=== PATIENT | male | born 1985 | race African-American/Black ===

== ENCOUNTER 2017-04-10 00:25 | Inpatient (IN) | payer SELFPAY ==
[2017-04-10] VITALS (11 sets, daily range): BP systolic 119–158; BP diastolic 66–103
[~2017-04-10] VITALS: Ht 182.9 cm; Wt 86.2 kg
--- NOTE | 2017-04-10 00:41 | PHYS DOC ---
Adult General Chief Complaint Chief Complaint: ABSCESS HPI HPI Patient is a 31 year old male who presents with perirectal abscess that he noted yesterday. Patient denies any significant medical history. Denies any fever. Review of Systems Review of Systems Constitutional: Denies fever or chills [] Eyes: Denies change in visual acuity, redness, or eye pain [] HENT: Denies nasal congestion or sore throat [] Respiratory: Denies cough or shortness of breath [] Cardiovascular: No additional information not addressed in HPI [] GI: Denies abdominal pain, nausea, vomiting, bloody stools or diarrhea [] : Denies dysuria or hematuria [] Musculoskeletal: Denies back pain or joint pain [] Integument: Perirectal abscess Neurologic: Denies headache, focal weakness or sensory changes [] Endocrine: Denies polyuria or polydipsia [] Allergies Allergies Allergies Coded Allergies Type Severity Reaction Last Updated Verified No Known Drug Allergies 04/10/17 No Physical Exam Physical Exam Constitutional: Well developed, well nourished, no acute distress, non-toxic appearance. [] HENT: Normocephalic, atraumatic, bilateral external ears normal, oropharynx moist, no oral exudates, nose normal. [] Eyes: PERRLA, EOMI, conjunctiva normal, no discharge. [] Neck: Normal range of motion, no tenderness, supple, no stridor. [] Cardiovascular:Heart rate regular rhythm, no murmur [] Lungs & Thorax: Bilateral breath sounds clear to auscultation [] Abdomen: Bowel sounds normal, soft, no tenderness, no masses, no pulsatile masses. [] Skin: Perirectal area with 2 connecting abscesses each approximately 5 x 3 cm. The abscesses are warm erythematous and appear fluctuant. Back: No tenderness, no CVA tenderness. [] Extremities: No tenderness, no cyanosis, no clubbing, ROM intact, no edema. [] Neurologic: Alert and oriented X 3, normal motor function, normal sensory function, no focal deficits noted. [] Psychologic: Affect normal, judgement normal, mood normal. [] Current Patient Data Vital Signs Vital Signs Date Time Temp Pulse Resp B/P (MAP) Pulse Ox O2 Delivery O2 Flow Rate FiO2 04/10/17 00:30 98.3 99 18 170/112 (131) 97 Room Air 98.3 EKG EKG [] Radiology/Procedures Radiology/Procedures [] Course & Med Decision Making Course & Med Decision Making Pertinent Labs and Imaging studies reviewed. (See chart for details) This is a 31-year-old male patient presenting to the ED with perirectal abscess that he noted yesterday. Patient state masses are up-to-date. This abscesses need to be drained surgically. Patient was admitted, Dr. Tolentino will be consulted by Dr. Waterman in AM for admission. Spoke with Dr. Mcallister who will f/u with patient labs were ordered including blood culture and wound culture (if available). CT of the abdomen and pelvic was ordered for rectal abscess. Patient was started on IV fluids, Zosyn and vancomycin were ordered. Vitals on arrival to the ED temperature was 98.3, heart rate 99, blood pressure 170/112 with no history of hypertension, O2 sats 97% on room air, respiration 18. Patient was admitted in stable condition. Dragon Disclaimer Dragon Disclaimer This electronic medical record was generated, in whole or in part, using a voice recognition dictation system. Departure Departure Impression: Primary Impression: Perirectal abscess Disposition: ADMITTED INPATIENT Condition: STABLE Referrals: NON,STAFF (PCP) LILY OBRIEN APRN Apr 10, 2017 00:41
[2017-04-10] MEDS ORDERED: IV NORMAL SALINE 1000ML BAG 1,000 ML IV ONE ×2 (00:45→01:00)
[2017-04-10] MEDS ORDERED: ONDANSETRON PF 4 MG/2 ML VIAL. IV PRN ×2 (01:00→10:30)
[2017-04-10] MEDS ORDERED: PIPERACILLIN/TAZOBACTAM 4.5 GM in IV NORMAL SALINE 100ML 100 ML IV ONE (01:00)
[2017-04-10] MEDS ORDERED: cloNIDine HCL 0.1 MG TABLET PO PRN (01:00)
[2017-04-10] MEDS ORDERED: ACETAMINOPHEN 325 MG TABLET. PO PRN (01:00)
[2017-04-10] MEDS ORDERED: CONTRAST GIVEN MC PRN (01:00)
[2017-04-10 01:02] LABS: BASO % 0 % (0-3); EOS % 3 % (0-3); HEMATOCRIT 43.3 % (39.0-53.0); HEMOGLOBIN 14.4 g/dL (13.0-17.5); LYMPH % 51 % (24-48); MEAN CORPUSCULAR HEMOGLOBIN 29 pg (25-35); MEAN CORPUSCULAR HGB CONC 33 g/dL (31-37); MEAN CORPUSCULAR VOLUME 87 fL (79-100); MONO % 7 % (0-9); NEUT % 39 % (31-73); PLATELET COUNT 212 x10^3/uL (140-400); RED CELL DISTRIBUTION WIDTH 15.1 % (11.5-14.5); WHITE BLOOD COUNT 7.8 x10^3/uL (4.0-11.0)
[2017-04-10 01:11] LABS: CALCIUM 8.9 mg/dL (8.5-10.1); GFR 106.2; POTASSIUM 4.2 mmol/L (3.5-5.1); PROTHROMBIN TIME PATIENT 12.3 SEC (11.7-14.0)
[2017-04-10] MEDS ORDERED: IOHEXOL 300 MG/ML 75 ML VIAL IV ONE (01:30)
[2017-04-10] MEDS ORDERED: VANCOMYCIN 2 GM in IV NORMAL SALINE 500ML BAG 500 ML IV ONE (01:30)
[2017-04-10] MEDS: MORPHINE SULFATE 4 MG/ML DISP.SYRIN. IV PRN ×3 (01:38→08:08)
--- NOTE | 2017-04-10 02:11 | RAD ---
Examination: CT of the abdomen pelvis with IV contrast HISTORY: History of perirectal abscess COMPARISON: None available TECHNIQUE: Axial CT images of the abdomen pelvis was performed with IV contrast. Coronal and sagittal reformats are performed Exposure: One or more of the following individualized dose reduction techniques were utilized for this examination: 1. Automated exposure control 2. Adjustment of the mA and/or kV according to patient size 3. Use of iterative reconstruction technique FINDINGS: The visualized bibasilar lungs grossly appears unremarkable. No evidence of free air identified in the abdomen. The visualized liver demonstrates a small hypodensity in the left lobe of the liver measuring 1.4 cm. The visualized spleen, adrenals grossly appears unremarkable. The gallbladder is mildly distended The stomach is mildly distended. The visualized pancreas grossly appears unremarkable The small bowel is nondilated. Feces and gas noted throughout the colon. The visualized appendix grossly appears unremarkable. Urinary bladder is mildly distended. The bilateral kidneys enhance symmetrically. There is a cystic structure identified in the right kidney measuring 1.4 cm probably a cyst. The caliber of the aorta grossly appears unremarkable. No evidence of lytic bony destructive lesion. There is questionable bilobed small soft tissue in the anal region which may be hemorrhoids or prolapse or mass however no focal fluid collection identified to suggest an abscess. IMPRESSION: 1.There is questionable bilobed small soft tissue in the anal region which may be hemorrhoids or prolapse or mass , however no focal fluid collection identified to suggest an abscess. 2. Liver demonstrates a small hypodensity in the left lobe of the liver measuring 1.4 cm, difficult but contrast could be a hemangioma. Follow-up nonemergent ultrasound can be considered. Electronically signed by: Justin Lyn MD (04/10/2017 2:07 AM) [id number]
[2017-04-10] MEDS: VANCOMYCIN PER PHARMACY MC PRN ×2 (03:30→15:40)
--- NOTE | 2017-04-10 04:23 | ACF ---
Admission Forms Criteria SKIN AND WOUND CARE ( Place 'X' for any and all applicable criteria): Ongoing inpatient care may be indicated for skin complications with 1 or more of the following [ ]I. Hemodynamic Instability((2)(8)(9)(28)(42)(43)(44) [ ]II. Dehydration that is severe or persistent [X ]III. Severe pain requiring acute inpatient management [ ]IV. Inpatient treatment needed as indicated by 1 or more of the following: Pressure ulcer closure procedures [ ] i. Skin grafting(45) [ ]ii. Opthalmic surgical procedure (eg amniotic membrane grafting) [ ]iii. Serial ocular examinations [ ]iv. Wound debridement [ ]v. Dressing change under general anesthesia [ ]vi. Diverting colostomy [ ]vii. Intravenous immunosuppressant therapy [ ]V. Significant burn as indicated by 1 or more of the following [ ]i. Full thickness burn greater than 10% of body surface area [ ]ii. Any burn greater than 15% of body surface area [ ]iii. Serious burn of hand, foot, genitals, face or joint [ ]iv. Burn accompanied by other significant medical problems or injuries (eg altered mental [ ]v. status, arrhythmia, inability to maintain oral hydration, significant wound) [ ]vi. Serious chemical burn [ ]vii. High voltage (e.g. 1000 volts or more) electrical burn [ ]viii. Circumferential burn [ ] . Skin infection requiring inpatient care as indicated by ALL of the following: [ ]a) Infection suspected as indicated by 1 or more of the following: [ ] i. Excessive drainage [ ]ii. Pus [ ]iii. Increased redness [ ]iv. Foul Odor [ ]v. Fever [ ]b) Clinically significant infection as indicated by 1 or more of the following: [ ]i. Vital signs abnormality [ ]ii. Persistantly high temperatures greater than 103.1 degrees F (39.5degrees C)(Oral) [ ]iii. Unexplained metabolic acidosis (eg lactic acidosis) [ ]iv. Evidence of end organ dysfunction (eg rising creatinine, myocardial ischemia, liver function tests) [ ]v. Hypoxemia [ ]vi. Tachypnea [ ]vii. Altered mental status [ ]viii. Dehydration that is severe or persistent Extended stay beyond goal length of stay for primary condition may be needed until ALL of the following are present(1)(2)(13)(21)(27): [ ]a) Hemodynamic instability [ ]b) Volume status acceptable [ ]c) Mental status at baseline [ ]d) Tissue necrosis absent or treatment plan manageable at lower level of care [ ]e) Fever absent or temperature as expected for disease process and acceptable for next level of care [ ]f) Hypoxemia present [ ]g) Tachypnea present [ ]h) Fistulas, tunneling, or underlying deep tissue infection absent or treated [ ]i) Purulence and tissue breakdown absent or improved [ ]j) Ulcer surgical repair absent or healing without complications [ ]k) Wound infection absent or manageable at lower level of care [ ]l) Comorbidities absent or manageable at lower level of care The original [facility] [employer] content created by [facility] [employer] has been revised. The portions of the content which have been revised are identified through the use of italic text, and [facility] has neither reviewed nor approved the modified material. All other unmodified content is copyright [facility] [employer]. Please see references footnoted in the original [facility] edition 2014 Admission Criteria Met?: Yes CORINNE VILLEGAS Apr 10, 2017 04:23 SUSANNA MUSA MD Apr 10, 2017 21:22
[2017-04-10] MEDS: VANCOMYCIN 1.25 GM in IV NORMAL SALINE 250ML 250 ML IV SCH ×2 (10:00→17:10)
[2017-04-10] MEDS ORDERED: MORPHINE SULFATE 2 MG/ML DISP.SYRIN. IV PRN (10:30)
[2017-04-10] MEDS ORDERED: fentaNYL PF VIAL 100 MCG/2 ML VIAL IV PRN (10:30)
[2017-04-10] MEDS ORDERED: PROCHLORPERAZINE 10 MG/2 ML VIAL. IV PRN (10:30)
[2017-04-10] MEDS ORDERED: LIDOCAINE 1% 1 ML SYRINGE. ID PRN (10:30)
[2017-04-10] MEDS ORDERED: HYDROmorphone 2 MG/ML VIAL IV PRN (10:30)
[2017-04-10] MEDS ORDERED: IV RINGERS,LACTATED 1000ML 1,000 ML IV SCH (10:30)
--- NOTE | 2017-04-10 11:06 | PDOC2 ---
CONSULT Date of Consult Date of Consult DATE: 04/10/17 TIME: 11:01 Reason for Consult Reason for Consult: perirectal pain and swelling Referring Physician Referring Physician: Randa Identification/Chief Complaint Chief Complaint Perirectal pain Problems: Source Source: Patient History of Present Illness Reason for Visit: 31 yo male with 2 day history for rectal pain and a swelling in the area. Denies fever or chills. Last BM 2 days ago. He has never had a problem like this before. Past Medical History Infectious disease: Other (hidradenitis) Past Surgical History Past Surgical History: No pertinent history Family History Family History: No Significant Social History 1 pack per day ALCOHOL: rare Lives: with Family Current Problem List Problem List Problems Medical Problems: (1) Perirectal abscess Status: Acute Current Medications Current Medications Current Medications Vancomycin HCl (Vanco Per Pharmacy) 1 each PRN DAILY PRN MC ABCESS Last administered on 04/10/17 03:30; Start 04/10/17 at 09:00 Piperacillin Sod/ Tazobactam Sod 4.5 gm/Sodium Chloride 100 ml @ 200 mls/hr 1X ONCE IV Last administered on 04/10/17 01:08; Start 04/10/17 at 01:00; Stop 04/10/17 at 01:29; Status DC Sodium Chloride 1,000 ml @ 1,000 mls/hr 1X ONCE IV Last administered on 01:07; Start 04/10/17 at 00:45; Stop 04/10/17 at 01:44; Status DC Vancomycin HCl 2 gm/Sodium Chloride 500 ml @ 250 mls/hr 1X ONCE IV Last administered on 04/10/17 01:51; Start 04/10/17 at 01:30; Stop 04/10/17 at 03:29 ; Status DC Iohexol (Omnipaque 300 Mg/ml) 75 ml 1X ONCE IV Last administered on 04/10/17 01:42; Start 04/10/17 at 01:30; Stop 04/10/17 at 01:31; Status DC Info (Do NOT chart on this entry -- for MONITORING) 1 each PRN DAILY PRN MC SEE COMMENTS; Start 04/10/17 at 01:00; Stop 04/12/17 at 00:59 Ondansetron HCl (Zofran) 4 mg PRN Q8HRS PRN IV NAUSEA/VOMITING; Start 04/10/17 at 01:00; Stop 04/11/17 at 00:59 Morphine Sulfate 4 mg PRN Q2HR PRN IV SEVERE PAIN Last administered on 08:08; Start 04/10/17 at 01:00; Stop 04/11/17 at 00:59 Acetaminophen (Tylenol) 650 mg PRN Q4HRS PRN PO FEVER; Start 04/10/17 at 01:00 ; Stop 04/11/17 at 00:59 Sodium Chloride 1,000 ml @ 125 mls/hr 1X ONCE IV Last administered on 01:00; Start 04/10/17 at 01:00; Stop 04/10/17 at 08:59; Status DC Clonidine HCl (Catapres) 0.1 mg PRN Q6HRS PRN PO ELEVATED BP, SEE COMMENTS Last administered on 04/10/17 01:40; Start 04/10/17 at 01:00 Vancomycin HCl 1.25 gm/Sodium Chloride 250 ml @ 167 mls/hr Q8H IV Last administered on 04/10/17 10:00; Start 04/10/17 at 10:00 Vancomycin HCl 1 each 1X ONCE MC ; Start 04/11/17 at 09:30; Stop 04/11/17 at 09 :31 Ondansetron HCl (Zofran) 4 mg PRN Q6HRS PRN IV NAUSEA/VOMITING; Start 04/10/17 at 10:30; Stop 04/10/17 at 19:00 Fentanyl Citrate (Fentanyl 2ml Vial) 25 mcg PRN Q5MIN PRN IV MILD PAIN; Start 04/10/17 at 10:30; Stop 04/10/17 at 19:00 Fentanyl Citrate (Fentanyl 2ml Vial) 50 mcg PRN Q5MIN PRN IV MODERATE PAIN; Start 04/10/17 at 10:30; Stop 04/10/17 at 19:00 Morphine Sulfate 1 mg PRN Q10MIN PRN IV SEVERE PAIN; Start 04/10/17 at 10:30; Stop 04/10/17 at 19:00 Ringer's Solution 1,000 ml @ 30 mls/hr Q24H IV ; Start 04/10/17 at 10:30; Stop 04/10/17 at 19:00 Lidocaine HCl 2 ml PRN 1X PRN ID PRIOR TO IV START; Start 04/10/17 at 10:30; Stop 04/10/17 at 19:00 Hydromorphone HCl (Dilaudid) 0.5 mg PRN Q10MIN PRN IV SEV PAIN, Second choice; Start 04/10/17 at 10:30; Stop 04/10/17 at 19:00 Prochlorperazine Edisylate (Compazine) 5 mg PACU PRN PRN IV NAUSEA, MRX1; Start 04/10/17 at 10:30; Stop 04/10/17 at 19:00 Allergies Allergies: Coded Allergies: No Known Drug Allergies (Unverified , 04/10/17) ROS Gastrointestinal: Yes Other (rectal pain) Physical Exam General: Alert, Oriented X3, Cooperative, moderate distress HEENT: Atraumatic, PERRLA, EOMI Lungs: Clear to auscultation, Normal air movement Heart: Regular rate, No murmurs Abdomen: Normal bowel sounds, Soft, No tenderness, Other (rectal exam show 2 large thrombosed hemmorrhoids very tender) Extremities: No edema Skin: No significant lesion Neuro: Normal speech Psych/Mental Status: Mental status NL Vitals VITALS Vital Signs Date Time Temp Pulse Resp B/P (MAP) Pulse Ox O2 Delivery O2 Flow Rate FiO2 04/10/17 08:38 98 04/10/17 08:00 Room Air 04/10/17 07:00 97.9 56 22 135/82 (99) 97.9 Labs Labs Laboratory Tests Test 04/10/17 00:51 04/10/17 09:15 White Blood Count 7.8 x10^3/uL (4.0-11.0) Red Blood Count 5.00 x10^6/uL (4.30-5.70) Hemoglobin 14.4 g/dL (13.0-17.5) Hematocrit 43.3 % (39.0-53.0) Mean Corpuscular Volume 87 fL (79-100) Mean Corpuscular Hemoglobin 29 pg (25-35) Mean Corpuscular Hemoglobin Concent 33 g/dL (31-37) Red Cell Distribution Width 15.1 % (11.5-14.5) Platelet Count 212 x10^3/uL (140-400) Neutrophils (%) (Auto) 39 % (31-73) Lymphocytes (%) (Auto) 51 % (24-48) Monocytes (%) (Auto) 7 % (0-9) Eosinophils (%) (Auto) 3 % (0-3) Basophils (%) (Auto) 0 % (0-3) Neutrophils # (Auto) 3.1 x10^3uL (1.8-7.7) Lymphocytes # (Auto) 4.0 x10^3/uL (1.0-4.8) Monocytes # (Auto) 0.5 x10^3/uL (0.0-1.1) Eosinophils # (Auto) 0.3 x10^3/uL (0.0-0.7) Basophils # (Auto) 0.0 x10^3/uL (0.0-0.2) Prothrombin Time 12.3 SEC (11.7-14.0) Prothromb Time International Ratio 1.0 (0.8-1.1) Activated Partial Thromboplast Time 32 SEC (24-38) Sodium Level 141 mmol/L (136-145) Potassium Level 4.2 mmol/L (3.5-5.1) Chloride Level 103 mmol/L (98-107) Carbon Dioxide Level 29 mmol/L (21-32) Anion Gap 9 (6-14) Blood Urea Nitrogen 12 mg/dL (8-26) Creatinine 1.0 mg/dL (0.7-1.3) Estimated GFR (Cockcroft-Gault) 106.2 Glucose Level 98 mg/dL (70-99) Calcium Level 8.9 mg/dL (8.5-10.1) Procalcitonin < 0.10 ng/mL (0.00-0.10) Ethyl Alcohol Level < 10 mg/dL (0-10) Lactic Acid Level 0.6 mmol/L (0.4-2.0) Laboratory Tests Test 04/10/17 00:51 04/10/17 09:15 White Blood Count 7.8 x10^3/uL (4.0-11.0) Red Blood Count 5.00 x10^6/uL (4.30-5.70) Hemoglobin 14.4 g/dL (13.0-17.5) Hematocrit 43.3 % (39.0-53.0) Mean Corpuscular Volume 87 fL (79-100) Mean Corpuscular Hemoglobin 29 pg (25-35) Mean Corpuscular Hemoglobin Concent 33 g/dL (31-37) Red Cell Distribution Width 15.1 % (11.5-14.5) Platelet Count 212 x10^3/uL (140-400) Neutrophils (%) (Auto) 39 % (31-73) Lymphocytes (%) (Auto) 51 % (24-48) Monocytes (%) (Auto) 7 % (0-9) Eosinophils (%) (Auto) 3 % (0-3) Basophils (%) (Auto) 0 % (0-3) Neutrophils # (Auto) 3.1 x10^3uL (1.8-7.7) Lymphocytes # (Auto) 4.0 x10^3/uL (1.0-4.8) Monocytes # (Auto) 0.5 x10^3/uL (0.0-1.1) Eosinophils # (Auto) 0.3 x10^3/uL (0.0-0.7) Basophils # (Auto) 0.0 x10^3/uL (0.0-0.2) Prothrombin Time 12.3 SEC (11.7-14.0) Prothromb Time International Ratio 1.0 (0.8-1.1) Activated Partial Thromboplast Time 32 SEC (24-38) Sodium Level 141 mmol/L (136-145) Potassium Level 4.2 mmol/L (3.5-5.1) Chloride Level 103 mmol/L (98-107) Carbon Dioxide Level 29 mmol/L (21-32) Anion Gap 9 (6-14) Blood Urea Nitrogen 12 mg/dL (8-26) Creatinine 1.0 mg/dL (0.7-1.3) Estimated GFR (Cockcroft-Gault) 106.2 Glucose Level 98 mg/dL (70-99) Calcium Level 8.9 mg/dL (8.5-10.1) Procalcitonin < 0.10 ng/mL (0.00-0.10) Ethyl Alcohol Level < 10 mg/dL (0-10) Lactic Acid Level 0.6 mmol/L (0.4-2.0) Images Images CT did not show any abscess Assessment/Plan Assessment/Plan Thrombosed hemorrhoids Plan exam under anesthesia with excision of hemorrhoids KEN FERNÁNDEZ MD Apr 10, 2017 11:06
[2017-04-10] MEDS ORDERED: PROPOFOL 20 ML IV ONE (13:54)
[2017-04-10] MEDS ORDERED: fentaNYL PF VIAL 100 MCG/2 ML VIAL ONE ×4 (13:54→15:10)
[2017-04-10] MEDS ORDERED: DEXAMETHASONE SOD PHOS 20 MG/5 ML VIAL. ONE (13:54)
[2017-04-10] MEDS ORDERED: MIDAZOLAM HCL/PF 2 MG/2 ML VIAL. ONE (13:54)
[2017-04-10] MEDS ORDERED: LIDOCAINE 2% PF Vial for OR 5 ML VIAL. ONE (13:54)
[2017-04-10] MEDS ORDERED: ONDANSETRON PF 4 MG/2 ML VIAL. ONE (13:54)
[2017-04-10] MEDS ORDERED: NEOMY/BACITR/POLYMYXIN OINT PACKET. TP ONE ×2 (13:57→14:28)
[2017-04-10] MEDS ORDERED: BUPIVAC MPF-EPI 0.5%-1:200000 30 ML VIAL. ONE (13:57)
[2017-04-10] MEDS ORDERED: FAMOTIDINE 20 MG/2 ML VIAL ONE (14:17)
--- NOTE | 2017-04-10 14:39 | PDOC4 ---
Operative Note Operative Note Date: 04/10/2017 Preoperative diagnosis: Thrombosed external hemorrhoids Postoperative diagnosis: Same Procedure: Excision of thrombosed external hemorrhoids 3 Surgeon: Esvin Specimen: External hemorrhoids Dictation: Patient is a 31-year-old male with complaints of an enlarging mass and perirectal pain. Procedure of excision of thrombosed external hemorrhoids was explained to the patient in detail risks benefits were also discussed including bleeding infection alternatives as this procedure were also discussed. The patient seemed understanding gave both verbal and written consent to have the procedure performed. Patient was taken to the operating room placed in the supine position general anesthesia was initiated once patient was asleep and intubated was placed in low lithotomy and his peritoneum was prepped and draped usual sterile fashion using Betadine scrub and solution. The external hemorrhoids were excised using the Harmonic scalpel. Once the external hemorrhoids were excised the area was then injected with half percent Marcaine with epinephrine. Area was then dressed with antibiotic ointment and AVD pad. Patient was awakened next but in the operating room taken to recovery in stable condition all sponge instrument and needle counts listed as correct estimate blood loss 10ml. KEN FERNÁNDEZ MD Apr 10, 2017 14:39
[2017-04-10] MEDS ORDERED: oxyCODONE/APAP 5/325 1 TAB TABLET PO PRN (14:45)
[2017-04-10] MEDS: fentaNYL PF VIAL 100 MCG/2 ML VIAL IV PRN ×2 (15:16→15:23)
[2017-04-10] MEDS: BISACODYL 5 MG TABLET.DR. PO SCH (17:09)
[2017-04-10] MEDS: KETOROLAC 15 MG/ML VIAL. IV SCH (17:11)
[2017-04-10] MEDS: NICOTINE 14MG PATCH. TD SCH (17:29)
[2017-04-10 17:40] LABS: BILIRUBIN,URINE NEGATIVE (NEG); GLUCOSE,URINE NEGATIVE (NEG); NITRITE,URINE NEGATIVE (NEG); PH,URINE 5.5; PROTEIN,URINE NEGATIVE (NEG-TRACE); UROBILINOGEN,URINE 0.2 mg/dL (0.2 mg/dL)
[2017-04-10 17:45] LABS: BARBITURATES NEG (NEG); BENZODIAZEPINES POS (NEG); CANNABINOIDS POS (NEG); COCAINE NEG (NEG); METHADONE NEG (NEG); OPIATES POS (NEG); PHENCYCLIDINE POS (NEG)
[2017-04-10 17:51] LABS: BACTERIA,URINE 0 /HPF (0-FEW); RBC,URINE 0 /HPF (0-2)
--- NOTE | 2017-04-10 18:04 | HP ---
ADMIT DATE: 04/10/2017 CHIEF COMPLAINT: Rectal pain. HISTORY OF PRESENT ILLNESS: The patient is a 31-year-old -[place] gentleman who presented to the hospital with severe pain in his rectal area. He reports that this started about 2 days prior, simply got worse, has difficulty sitting. Denies any fevers or chills. He does have a history of hidradenitis suppurativa and has an abscess under his chin as well as in his left groin. PAST MEDICAL HISTORY: None. FAMILY HISTORY: Hypertension. SOCIAL HISTORY: Just moved here from [place], smokes about a pack a day and denies any alcohol or drug use. ALLERGIES: No known drug allergies. HOME MEDICATIONS: None. REVIEW OF SYSTEMS: Positive as per HPI. Rest of organ system review is negative. PHYSICAL EXAMINATION: VITAL SIGNS: From today show a blood pressure of 148/89, heart rate of 66, respiratory rate at 18. He is afebrile. GENERAL: This is a 31-year-old -[place] gentleman, alert and oriented, in no acute distress. LUNGS: Clear. HEART: Has regular rate and rhythm. ABDOMEN: Has positive bowel sounds, soft, nontender. EXTREMITIES: Left groin shows about a 3 cm diameter raised, tender abscess without any surrounding erythema. SKIN: Warm, soft and dry without any rash. LABORATORY DATA: CBC with a WBC of 7.8, hemoglobin 14.4, platelets of 212. Chemistries with a BUN and creatinine of 12 and 1, normal electrolytes. Tox screen negative for alcohol. ASSESSMENT AND PLAN: The patient is a 31-year-old -[place] gentleman who presented with a thrombosed hemorrhoid. Dr. Mcallister took him to hemorrhoidectomy surgically earlier today. The patient tolerated the procedure well. Pain control as needed. I discussed with the patient that narcotics will make him more constipated and we will try and avoid that given his current situation. We will start him on Dulcolax daily. The groin abscess was discussed with Dr. Mcallister. The 2 procedures cannot be done at the same time. He will evaluate in the morning and I and D is indicated. SUSANNA MUSA MD DR: AC/nts JOB#: [id number] / [id number] MTDD
[2017-04-11] VITALS (7 sets, daily range): BP systolic 112–148; BP diastolic 60–97
[2017-04-11] MEDS: KETOROLAC 15 MG/ML VIAL. IV SCH ×4 (00:58→18:17)
[2017-04-11] MEDS: VANCOMYCIN 1.25 GM in IV NORMAL SALINE 250ML 250 ML IV SCH ×3 (01:02→18:16)
[2017-04-11] MEDS ORDERED: IV RINGERS,LACTATED 1000ML 1,000 ML IV SCH (07:19)
[2017-04-11] MEDS ORDERED: LIDOCAINE 1% 1 ML SYRINGE. ID PRN (07:30)
[2017-04-11] MEDS ORDERED: fentaNYL PF VIAL 100 MCG/2 ML VIAL IV PRN (07:30)
[2017-04-11] MEDS ORDERED: PROCHLORPERAZINE 10 MG/2 ML VIAL. IV PRN (07:30)
[2017-04-11] MEDS ORDERED: HYDROmorphone 2 MG/ML VIAL IV PRN (07:30)
[2017-04-11] MEDS ORDERED: MORPHINE SULFATE 2 MG/ML DISP.SYRIN. IV PRN (07:30)
[2017-04-11] MEDS ORDERED: ONDANSETRON PF 4 MG/2 ML VIAL. IV PRN (07:30)
[2017-04-11] MEDS ORDERED: PROPOFOL 20 ML IV ONE (07:44)
[2017-04-11] MEDS ORDERED: LIDOCAINE 2% PF Vial for OR 5 ML VIAL. ONE (07:44)
[2017-04-11] MEDS ORDERED: DEXAMETHASONE SOD PHOS 20 MG/5 ML VIAL. ONE (07:44)
[2017-04-11] MEDS ORDERED: ONDANSETRON PF 4 MG/2 ML VIAL. ONE (07:44)
[2017-04-11] MEDS ORDERED: fentaNYL PF VIAL 100 MCG/2 ML VIAL ONE ×2 (07:46→08:34)
[2017-04-11] MEDS ORDERED: MIDAZOLAM HCL/PF 2 MG/2 ML VIAL. ONE (07:53)
--- NOTE | 2017-04-11 08:20 | PDOC4 ---
Operative Note Operative Note Date: 04/11/2017 Preoperative diagnosis: Left groin abscess Postoperative diagnosis: Same Procedure: Incision and drainage of left groin abscess Surgeon: Esvin Specimen: Cultures Dictation: Patient is a 31-year-old male with a history of hidradenitis has developed a left groin abscess superficial. Procedure of incision and drainage of abscess was explained to the patient in detail was benefits were also discussed including bleeding infection alternatives to this procedure also discussed. The patient seemed understanding gave both verbal and written consent to have the procedure performed. Patient was taken to the operating room placed in the supine position general anesthesia was initiated once patient was asleep and intubated his groin was prepped and draped usual sterile fashion using ChloraPrep. An 11 blade scalpel was used to incise the skin which allowed copious amounts of purulent material to be expressed this was suctioned wound was then irrigated with saline. Cultures of the purulent material are taken and the wound was then packed with quarter inch iodoform Nu Gauze. Wound was then dressed with 4 x 4's Medipore tape. He was awakened and asked made in the operative room taken to recovery in stable condition all sponge instrument and needle counts listed as correct estimated blood loss 5 mL. KEN FERNÁNDEZ MD Apr 11, 2017 08:20
[2017-04-11] MEDS: fentaNYL PF VIAL 100 MCG/2 ML VIAL IV PRN ×3 (08:40→08:59)
[2017-04-11] MEDS: BISACODYL 5 MG TABLET.DR. PO SCH (10:10)
[2017-04-11] MEDS: NICOTINE 14MG PATCH. TD SCH (10:10)
[2017-04-11] MEDS: VANCOMYCIN PER PHARMACY MC PRN (12:33)
--- NOTE | 2017-04-11 12:56 | PDOC ---
PROGRESS NOTES Chief Complaint Chief Complaint Perirectal abscess L groin abscess Hidradenitis suppurativa Abscess under chin History of Present Illness History of Present Illness Pt in bed, reports that he had surgery today for perirectal abscess Vitals Vitals Vital Signs Date Time Temp Pulse Resp B/P (MAP) Pulse Ox O2 Delivery O2 Flow Rate FiO2 04/11/17 10:15 60 18 143/92 (109) 97 Room Air 04/11/17 08:51 98.2 98.2 04/11/17 08:00 10.0 Physical Exam General: Alert, Oriented X3, Cooperative, No acute distress Heart: Regular rate, No murmurs Lungs: Clear, Other (No respiratory distress) Abdomen: Normal bowel sounds, Soft, No tenderness, Other (rectal exam show 2 large thrombosed hemmorrhoids very tender) Extremities: No clubbing, No edema Skin: No rashes, No significant lesion Labs LABS Laboratory Tests Test 04/10/17 17:30 04/11/17 10:05 Urine Collection Type Unknown Urine Color Yellow Urine Clarity Clear Urine pH 5.5 Urine Specific [place] 1.015 Urine Protein Negative mg/dL (NEG-TRACE) Urine Glucose (UA) Negative mg/dL (NEG) Urine Ketones (Stick) Negative mg/dL (NEG) Urine Blood Negative (NEG) Urine Nitrite Negative (NEG) Urine Bilirubin Negative (NEG) Urine Urobilinogen Dipstick 0.2 mg/dL (0.2 mg/dL) Urine Leukocyte Esterase Negative (NEG) Urine RBC 0 /HPF (0-2) Urine WBC 1-4 /HPF (0-4) Urine Bacteria 0 /HPF (0-FEW) Urine Mucus Mod /LPF Urine Opiates Screen Pos (NEG) Urine Methadone Screen Neg (NEG) Urine Barbiturates Neg (NEG) Urine Phencyclidine Screen Pos (NEG) Urine Amphetamine/Methamphetamine Neg (NEG) Urine Benzodiazepines Screen Pos (NEG) Urine Cocaine Screen Neg (NEG) Urine Cannabinoids Screen Pos (NEG) Urine Ethyl Alcohol Neg (NEG) Vancomycin Level Trough 11.8 mcg/mL (10.0-20.0) Vancomycin Last Dose Date 04/11/17 Vancomycin Last Dose Time 0200 Review of Systems Review of Systems Pt complains of slight anterior groin abscess tenderness, pt denies any respiratory distress Assessment and Plan Assessmemt and Plan Problems Medical Problems: (1) Perirectal abscess: Pain meds prn. Continue Abx & wound care Status: Acute 2. Groin abscess: continue to monitor Problems: Comment Review of Relevant I have reviewed the following items raman (where applicable) has been applied. Labs Laboratory Tests Test 04/10/17 00:51 04/10/17 09:15 04/10/17 17:30 04/11/17 10:05 White Blood Count 7.8 x10^3/uL (4.0-11.0) Red Blood Count 5.00 x10^6/uL (4.30-5.70) Hemoglobin 14.4 g/dL (13.0-17.5) Hematocrit 43.3 % (39.0-53.0) Mean Corpuscular Volume 87 fL (79-100) Mean Corpuscular Hemoglobin 29 pg (25-35) Mean Corpuscular Hemoglobin Concent 33 g/dL (31-37) Red Cell Distribution Width 15.1 % (11.5-14.5) Platelet Count 212 x10^3/uL (140-400) Neutrophils (%) (Auto) 39 % (31-73) Lymphocytes (%) (Auto) 51 % (24-48) Monocytes (%) (Auto) 7 % (0-9) Eosinophils (%) (Auto) 3 % (0-3) Basophils (%) (Auto) 0 % (0-3) Neutrophils # (Auto) 3.1 x10^3uL (1.8-7.7) Lymphocytes # (Auto) 4.0 x10^3/uL (1.0-4.8) Monocytes # (Auto) 0.5 x10^3/uL (0.0-1.1) Eosinophils # (Auto) 0.3 x10^3/uL (0.0-0.7) Basophils # (Auto) 0.0 x10^3/uL (0.0-0.2) Prothrombin Time 12.3 SEC (11.7-14.0) Prothromb Time International Ratio 1.0 (0.8-1.1) Activated Partial Thromboplast Time 32 SEC (24-38) Sodium Level 141 mmol/L (136-145) Potassium Level 4.2 mmol/L (3.5-5.1) Chloride Level 103 mmol/L (98-107) Carbon Dioxide Level 29 mmol/L (21-32) Anion Gap 9 (6-14) Blood Urea Nitrogen 12 mg/dL (8-26) Creatinine 1.0 mg/dL (0.7-1.3) Estimated GFR (Cockcroft-Gault) 106.2 Glucose Level 98 mg/dL (70-99) Calcium Level 8.9 mg/dL (8.5-10.1) Procalcitonin < 0.10 ng/mL (0.00-0.10) Ethyl Alcohol Level < 10 mg/dL (0-10) Lactic Acid Level 0.6 mmol/L (0.4-2.0) Urine Collection Type Unknown Urine Color Yellow Urine Clarity Clear Urine pH 5.5 Urine Specific [place] 1.015 Urine Protein Negative mg/dL (NEG-TRACE) Urine Glucose (UA) Negative mg/dL (NEG) Urine Ketones (Stick) Negative mg/dL (NEG) Urine Blood Negative (NEG) Urine Nitrite Negative (NEG) Urine Bilirubin Negative (NEG) Urine Urobilinogen Dipstick 0.2 mg/dL (0.2 mg/dL) Urine Leukocyte Esterase Negative (NEG) Urine RBC 0 /HPF (0-2) Urine WBC 1-4 /HPF (0-4) Urine Bacteria 0 /HPF (0-FEW) Urine Mucus Mod /LPF Urine Opiates Screen Pos (NEG) Urine Methadone Screen Neg (NEG) Urine Barbiturates Neg (NEG) Urine Phencyclidine Screen Pos (NEG) Urine Amphetamine/Methamphetamine Neg (NEG) Urine Benzodiazepines Screen Pos (NEG) Urine Cocaine Screen Neg (NEG) Urine Cannabinoids Screen Pos (NEG) Urine Ethyl Alcohol Neg (NEG) Vancomycin Level Trough 11.8 mcg/mL (10.0-20.0) Vancomycin Last Dose Date 04/11/17 Vancomycin Last Dose Time 0200 Laboratory Tests Test 04/10/17 17:30 04/11/17 10:05 Urine Collection Type Unknown Urine Color Yellow Urine Clarity Clear Urine pH 5.5 Urine Specific [place] 1.015 Urine Protein Negative mg/dL (NEG-TRACE) Urine Glucose (UA) Negative mg/dL (NEG) Urine Ketones (Stick) Negative mg/dL (NEG) Urine Blood Negative (NEG) Urine Nitrite Negative (NEG) Urine Bilirubin Negative (NEG) Urine Urobilinogen Dipstick 0.2 mg/dL (0.2 mg/dL) Urine Leukocyte Esterase Negative (NEG) Urine RBC 0 /HPF (0-2) Urine WBC 1-4 /HPF (0-4) Urine Bacteria 0 /HPF (0-FEW) Urine Mucus Mod /LPF Urine Opiates Screen Pos (NEG) Urine Methadone Screen Neg (NEG) Urine Barbiturates Neg (NEG) Urine Phencyclidine Screen Pos (NEG) Urine Amphetamine/Methamphetamine Neg (NEG) Urine Benzodiazepines Screen Pos (NEG) Urine Cocaine Screen Neg (NEG) Urine Cannabinoids Screen Pos (NEG) Urine Ethyl Alcohol Neg (NEG) Vancomycin Level Trough 11.8 mcg/mL (10.0-20.0) Vancomycin Last Dose Date 04/11/17 Vancomycin Last Dose Time 0200 Microbiology 04/10/17 Blood Culture - Preliminary, Resulted NO GROWTH AFTER 1 DAY 04/11/17 Gram Stain - Final, Complete Medications Current Medications Vancomycin HCl (Vanco Per Pharmacy) 1 each PRN DAILY PRN MC ABCESS Last administered on 04/11/17 12:33; Start 04/10/17 at 09:00 Piperacillin Sod/ Tazobactam Sod 4.5 gm/Sodium Chloride 100 ml @ 200 mls/hr 1X ONCE IV Last administered on 04/10/17 01:08; Start 04/10/17 at 01:00; Stop 04/10/17 at 01:29; Status DC Sodium Chloride 1,000 ml @ 1,000 mls/hr 1X ONCE IV Last administered on 01:07; Start 04/10/17 at 00:45; Stop 04/10/17 at 01:44; Status DC Vancomycin HCl 2 gm/Sodium Chloride 500 ml @ 250 mls/hr 1X ONCE IV Last administered on 04/10/17 01:51; Start 04/10/17 at 01:30; Stop 04/10/17 at 03:29 ; Status DC Iohexol (Omnipaque 300 Mg/ml) 75 ml 1X ONCE IV Last administered on 04/10/17 01:42; Start 04/10/17 at 01:30; Stop 04/10/17 at 01:31; Status DC Info (Do NOT chart on this entry -- for MONITORING) 1 each PRN DAILY PRN MC SEE COMMENTS; Start 04/10/17 at 01:00; Stop 04/12/17 at 00:59 Ondansetron HCl (Zofran) 4 mg PRN Q8HRS PRN IV NAUSEA/VOMITING; Start 04/10/17 at 01:00; Stop 04/10/17 at 17:07; Status DC Morphine Sulfate 4 mg PRN Q2HR PRN IV SEVERE PAIN Last administered on 08:08; Start 04/10/17 at 01:00; Stop 04/10/17 at 17:07; Status DC Acetaminophen (Tylenol) 650 mg PRN Q4HRS PRN PO FEVER; Start 04/10/17 at 01:00 ; Stop 04/11/17 at 00:59; Status DC Sodium Chloride 1,000 ml @ 125 mls/hr 1X ONCE IV Last administered on 01:00; Start 04/10/17 at 01:00; Stop 04/10/17 at 08:59; Status DC Clonidine HCl (Catapres) 0.1 mg PRN Q6HRS PRN PO ELEVATED BP, SEE COMMENTS Last administered on 04/10/17 01:40; Start 04/10/17 at 01:00 Vancomycin HCl 1.25 gm/Sodium Chloride 250 ml @ 167 mls/hr Q8H IV Last administered on 04/11/17 12:14; Start 04/10/17 at 10:00 Vancomycin HCl 1 each 1X ONCE MC ; Start 04/11/17 at 09:30; Stop 04/11/17 at 09 :31; Status DC Ondansetron HCl (Zofran) 4 mg PRN Q6HRS PRN IV NAUSEA/VOMITING; Start 04/10/17 at 10:30; Stop 04/10/17 at 19:00; Status DC Fentanyl Citrate (Fentanyl 2ml Vial) 25 mcg PRN Q5MIN PRN IV MILD PAIN; Start 04/10/17 at 10:30; Stop 04/10/17 at 17:07; Status DC Fentanyl Citrate (Fentanyl 2ml Vial) 50 mcg PRN Q5MIN PRN IV MODERATE PAIN Last administered on 04/10/17 15:23; Start 04/10/17 at 10:30; Stop 04/10/17 at 17:07; Status DC Morphine Sulfate 1 mg PRN Q10MIN PRN IV SEVERE PAIN; Start 04/10/17 at 10:30; Stop 04/10/17 at 17:07; Status DC Ringer's Solution 1,000 ml @ 30 mls/hr Q24H IV Last administered on 04/10/17t 13:20; Start 04/10/17 at 10:30; Stop 04/10/17 at 19:00; Status DC Lidocaine HCl 2 ml PRN 1X PRN ID PRIOR TO IV START; Start 04/10/17 at 10:30; Stop 04/10/17 at 19:00; Status DC Hydromorphone HCl (Dilaudid) 0.5 mg PRN Q10MIN PRN IV SEV PAIN, Second choice; Start 04/10/17 at 10:30; Stop 04/10/17 at 17:07; Status DC Prochlorperazine Edisylate (Compazine) 5 mg PACU PRN PRN IV NAUSEA, MRX1; Start 04/10/17 at 10:30; Stop 04/10/17 at 19:00; Status DC Cefazolin Sodium/ Dextrose 50 ml @ 100 mls/hr 1X ONCE IV Last administered on 04/10/17t 14:17; Start 04/10/17 at 12:00; Stop 04/10/17 at 12:29; Status DC Dexamethasone Sodium Phosphate (Decadron) 20 mg STK-MED ONCE .ROUTE ; Start at 13:54; Stop 04/10/17 at 13:55; Status DC Ondansetron HCl (Zofran) 4 mg STK-MED ONCE .ROUTE ; Start 04/10/17 at 13:54; Stop 04/10/17 at 13:55; Status DC Propofol 20 ml @ As Directed STK-MED ONCE IV ; Start 04/10/17 at 13:54; Stop at 13:55; Status DC Lidocaine HCl (Lidocaine Pf 2% Vial) 5 ml STK-MED ONCE .ROUTE ; Start 04/10/17 at 13:54; Stop 04/10/17 at 13:55; Status DC Midazolam HCl (Versed) 2 mg STK-MED ONCE .ROUTE ; Start 04/10/17 at 13:54; Stop 04/10/17 at 13:55; Status DC Fentanyl Citrate (Fentanyl 2ml Vial) 100 mcg STK-MED ONCE .ROUTE ; Start at 13:54; Stop 04/10/17 at 13:55; Status DC Neomycin/ Polymyxin/ Bacitracin (Triple Antibiotic Ointment) 1 pkt STK-MED ONCE TP Last administered on 04/10/17 14:22; Start 04/10/17 at 13:57; Stop at 13:58; Status DC Bupivacaine HCl/ Epinephrine Bitart (Sensorcain-Mpf Epi 0.5%-[id number]) 30 ml STK -MED ONCE .ROUTE Last administered on 04/10/17 14:22; Start 04/10/17 at 13:57 ; Stop 04/10/17 at 13:58; Status DC Famotidine (Pepcid) 20 mg STK-MED ONCE .ROUTE ; Start 04/10/17 at 14:17; Stop at 14:18; Status DC Fentanyl Citrate (Fentanyl 2ml Vial) 100 mcg STK-MED ONCE .ROUTE ; Start at 14:18; Stop 04/10/17 at 14:19; Status DC Fentanyl Citrate (Fentanyl 2ml Vial) 100 mcg STK-MED ONCE .ROUTE ; Start at 14:27; Stop 04/10/17 at 14:28; Status DC Neomycin/ Polymyxin/ Bacitracin (Triple Antibiotic Ointment) 1 pkt STK-MED ONCE TP Last administered on 04/10/17 14:22; Start 04/10/17 at 14:28; Stop at 14:29; Status DC Oxycodone/ Acetaminophen (Percocet 5/325) 1 tab PRN Q4HRS PRN PO PAIN; Start at 14:45 Oxycodone/ Acetaminophen (Percocet 5/325) 2 tab PRN Q4HRS PRN PO PAIN Last administered on 04/10/17 20:44; Start 04/10/17 at 14:45 Ketorolac Tromethamine (Toradol) 15 mg Q6HRS IV Last administered on 04/11/17 12:15; Start 04/10/17 at 18:00; Stop 04/12/17 at 17:59 Fentanyl Citrate (Fentanyl 2ml Vial) 100 mcg STK-MED ONCE .ROUTE ; Start at 15:10; Stop 04/10/17 at 15:11; Status DC Bisacodyl (Dulcolax Tab) 5 mg DAILY PO Last administered on 04/11/17 10:10; Start 04/10/17 at 17:00 Nicotine (Nicoderm Cq 14mg) 1 patch DAILY TD Last administered on 04/11/17 10: 10; Start 04/10/17 at 18:00 Ondansetron HCl (Zofran) 4 mg PRN Q6HRS PRN IV NAUSEA/VOMITING; Start 04/11/17 at 07:30; Stop 04/11/17 at 13:00 Fentanyl Citrate (Fentanyl 2ml Vial) 25 mcg PRN Q5MIN PRN IV MILD PAIN; Start 04/11/17 at 07:30; Stop 04/11/17 at 13:00 Fentanyl Citrate (Fentanyl 2ml Vial) 50 mcg PRN Q5MIN PRN IV MODERATE PAIN Last administered on 04/11/17 08:59; Start 04/11/17 at 07:30; Stop 04/11/17 at 13:00 Morphine Sulfate 1 mg PRN Q10MIN PRN IV SEVERE PAIN; Start 04/11/17 at 07:30; Stop 04/11/17 at 13:00 Ringer's Solution 1,000 ml @ 30 mls/hr Q24H IV Last administered on 04/11/17 07:50; Start 04/11/17 at 07:19; Stop 04/11/17 at 19:18 Lidocaine HCl 2 ml PRN 1X PRN ID PRIOR TO IV START; Start 04/11/17 at 07:30; Stop 04/11/17 at 13:00 Hydromorphone HCl (Dilaudid) 0.5 mg PRN Q10MIN PRN IV SEV PAIN, Second choice; Start 04/11/17 at 07:30; Stop 04/11/17 at 13:00 Prochlorperazine Edisylate (Compazine) 5 mg PACU PRN PRN IV NAUSEA, MRX1; Start 04/11/17 at 07:30; Stop 04/11/17 at 13:00 Dexamethasone Sodium Phosphate (Decadron) 20 mg STK-MED ONCE .ROUTE ; Start at 07:44; Stop 04/11/17 at 07:45; Status DC Ondansetron HCl (Zofran) 4 mg STK-MED ONCE .ROUTE ; Start 04/11/17 at 07:44; Stop 04/11/17 at 07:45; Status DC Propofol 20 ml @ As Directed STK-MED ONCE IV ; Start 04/11/17 at 07:44; Stop at 07:45; Status DC Lidocaine HCl (Lidocaine Pf 2% Vial) 5 ml STK-MED ONCE .ROUTE ; Start 04/11/17 at 07:44; Stop 04/11/17 at 07:45; Status DC Fentanyl Citrate (Fentanyl 2ml Vial) 100 mcg STK-MED ONCE .ROUTE ; Start at 07:46; Stop 04/11/17 at 07:47; Status DC Midazolam HCl (Versed) 2 mg STK-MED ONCE .ROUTE ; Start 04/11/17 at 07:53; Stop 04/11/17 at 07:54; Status DC Fentanyl Citrate (Fentanyl 2ml Vial) 100 mcg STK-MED ONCE .ROUTE ; Start at 08:34; Stop 04/11/17 at 08:35; Status DC Vitals/I & O Vital Sign - Last 24 Hours 04/10/17 04/10/17 04/10/17 04/10/17 13:16 14:39 14:55 15:10 Temp 98.1 98.1 98.1 98.1 Pulse 54 60 58 64 Resp 16 16 12 12 B/P (MAP) 145/92 124/63 147/82 157/98 Pulse Ox 100 100 100 95 O2 Delivery Room Air Simple Mask Simple Mask Room Air O2 Flow Rate 10 10 04/10/17 04/10/17 04/10/17 04/10/17 15:16 15:23 15:30 15:45 Temp 97.4 97.4 Pulse 58 60 Resp 16 16 20 20 B/P (MAP) 142/95 (111) 138/87 (104) Pulse Ox 100 98 96 98 O2 Delivery Room Air Room Air Room Air 04/10/17 04/10/17 04/10/17 04/10/17 15:46 16:00 16:15 16:28 Temp 97.0 98.2 97.0 98.2 Pulse 66 78 68 Resp 18 22 22 B/P (MAP) 148/89 (108) 147/98 (114) 154/97 (116) Pulse Ox 96 96 97 97 O2 Delivery Room Air 04/10/17 04/10/17 04/10/17 04/10/17 17:30 19:00 20:23 20:44 Temp 98.0 97.4 98.0 97.4 Pulse 88 68 Resp 20 20 18 B/P (MAP) 133/80 (97) 133/87 (102) Pulse Ox 98 97 97 O2 Delivery Room Air Room Air Room Air Room Air 04/10/17 04/10/17 04/11/17 04/11/17 21:40 22:57 03:00 07:51 Temp 98.1 97.9 97.6 98.1 97.9 97.6 Pulse 62 57 75 Resp 18 20 20 15 B/P (MAP) 119/66 (83) 112/60 (77) 148/96 Pulse Ox 97 98 99 99 O2 Delivery Room Air Room Air Room Air Room Air O2 Flow Rate 10.0 10 04/11/17 04/11/17 04/11/17 04/11/17 08:00 08:21 08:36 08:40 Temp 98.2 98.2 Pulse 65 63 Resp 16 16 18 B/P (MAP) 115/65 146/83 Pulse Ox 100 98 O2 Delivery Room Air Room Air Room Air Room Air O2 Flow Rate 10.0 04/11/17 04/11/17 04/11/17 04/11/17 08:51 08:57 08:59 09:06 Temp 98.2 98.2 Pulse 63 59 Resp 16 16 16 18 B/P (MAP) 143/76 134/84 Pulse Ox 100 98 O2 Delivery Room Air Room Air Room Air 04/11/17 04/11/17 04/11/17 04/11/17 09:21 09:36 09:45 10:00 Pulse 57 54 58 57 Resp 16 16 18 18 B/P (MAP) 149/90 141/81 146/97 (113) 145/89 (107) Pulse Ox 98 100 99 99 O2 Delivery Room Air Room Air Room Air Room Air 04/11/17 10:15 Pulse 60 Resp 18 B/P (MAP) 143/92 (109) Pulse Ox 97 O2 Delivery Room Air Intake and Output 04/10/17 04/10/17 04/11/17 15:00 23:00 07:00 Intake Total 550 ml 480 ml 250 ml Output Total 400 ml Balance 550 ml 480 ml -150 ml CASTLE,NIAL K III DO Apr 11, 2017 12:56
[2017-04-12] VITALS (7 sets, daily range): BP systolic 134–152; BP diastolic 90–104
[2017-04-12] MEDS: KETOROLAC 15 MG/ML VIAL. IV SCH ×3 (00:45→14:44)
[2017-04-12] MEDS: VANCOMYCIN 1.25 GM in IV NORMAL SALINE 250ML 250 ML IV SCH ×2 (02:49→11:29)
[2017-04-12 06:29] LABS: BASO # 0.1 x10^3/uL (0.0-0.2); BASO % 1 % (0-3); EOS % 1 % (0-3); HEMATOCRIT 37.6 % (39.0-53.0); HEMOGLOBIN 12.1 g/dL (13.0-17.5); LYMPH % 32 % (24-48); MEAN CORPUSCULAR HEMOGLOBIN 28 pg (25-35); MEAN CORPUSCULAR HGB CONC 32 g/dL (31-37); MEAN CORPUSCULAR VOLUME 87 fL (79-100); MONO % 5 % (0-9); NEUT % 61 % (31-73); PLATELET COUNT 166 x10^3/uL (140-400); RED BLOOD COUNT 4.33 x10^6/uL (4.30-5.70); RED CELL DISTRIBUTION WIDTH 14.4 % (11.5-14.5); WHITE BLOOD COUNT 12.2 x10^3/uL (4.0-11.0)
[2017-04-12 07:03] LABS: CALCIUM 8.1 mg/dL (8.5-10.1); CREATININE 0.9 mg/dL (0.7-1.3); GFR 119.9; POTASSIUM 4.1 mmol/L (3.5-5.1)
[2017-04-12] MEDS: BISACODYL 5 MG TABLET.DR. PO SCH (08:26)
[2017-04-12] MEDS: NICOTINE 14MG PATCH. TD SCH (08:27)
--- NOTE | 2017-04-12 10:43 | PDOC ---
MICHAEL ALBARADO TECHNOLOGY OFFICER 04/12/17 1042: SURGICAL PROGRESS NOTE Subjective feeling well talking on phone tolerating diet Vital Signs Vital Signs Date Time Temp Pulse Resp B/P (MAP) Pulse Ox O2 Delivery O2 Flow Rate FiO2 04/12/17 07:00 97.7 57 18 134/92 (106) 98 Room Air 97.7 04/11/17 08:00 10.0 I&O Intake and Output 04/12/17 07:00 Intake Total 2210 ml Output Total 750 ml Balance 1460 ml Intake Oral 2210 ml Output Urine Total 750 ml General: Alert, Oriented X3, Cooperative, No acute distress Skin: Other (left groin packing in place, soft ) Labs Laboratory Tests Test 04/10/17 17:30 04/11/17 10:05 04/12/17 05:00 04/12/17 05:40 Urine Collection Type Unknown Urine Color Yellow Urine Clarity Clear Urine pH 5.5 Urine Specific [place] 1.015 Urine Protein Negative mg/dL (NEG-TRACE) Urine Glucose (UA) Negative mg/dL (NEG) Urine Ketones (Stick) Negative mg/dL (NEG) Urine Blood Negative (NEG) Urine Nitrite Negative (NEG) Urine Bilirubin Negative (NEG) Urine Urobilinogen Dipstick 0.2 mg/dL (0.2 mg/dL) Urine Leukocyte Esterase Negative (NEG) Urine RBC 0 /HPF (0-2) Urine WBC 1-4 /HPF (0-4) Urine Bacteria 0 /HPF (0-FEW) Urine Mucus Mod /LPF Urine Opiates Screen Pos (NEG) Urine Methadone Screen Neg (NEG) Urine Barbiturates Neg (NEG) Urine Phencyclidine Screen Pos (NEG) Urine Amphetamine/Methamphetamine Neg (NEG) Urine Benzodiazepines Screen Pos (NEG) Urine Cocaine Screen Neg (NEG) Urine Cannabinoids Screen Pos (NEG) Urine Ethyl Alcohol Neg (NEG) Vancomycin Level Trough 11.8 mcg/mL (10.0-20.0) Vancomycin Last Dose Date 04/11/17 Vancomycin Last Dose Time 0200 Sodium Level 140 mmol/L (136-145) Potassium Level 4.1 mmol/L (3.5-5.1) Chloride Level 106 mmol/L (98-107) Carbon Dioxide Level 26 mmol/L (21-32) Anion Gap 8 (6-14) Blood Urea Nitrogen 10 mg/dL (8-26) Creatinine 0.9 mg/dL (0.7-1.3) Estimated GFR (Cockcroft-Gault) 119.9 Glucose Level 105 mg/dL (70-99) Calcium Level 8.1 mg/dL (8.5-10.1) White Blood Count 12.2 x10^3/uL (4.0-11.0) Red Blood Count 4.33 x10^6/uL (4.30-5.70) Hemoglobin 12.1 g/dL (13.0-17.5) Hematocrit 37.6 % (39.0-53.0) Mean Corpuscular Volume 87 fL (79-100) Mean Corpuscular Hemoglobin 28 pg (25-35) Mean Corpuscular Hemoglobin Concent 32 g/dL (31-37) Red Cell Distribution Width 14.4 % (11.5-14.5) Platelet Count 166 x10^3/uL (140-400) Neutrophils (%) (Auto) 61 % (31-73) Lymphocytes (%) (Auto) 32 % (24-48) Monocytes (%) (Auto) 5 % (0-9) Eosinophils (%) (Auto) 1 % (0-3) Basophils (%) (Auto) 1 % (0-3) Neutrophils # (Auto) 7.4 x10^3uL (1.8-7.7) Lymphocytes # (Auto) 4.0 x10^3/uL (1.0-4.8) Monocytes # (Auto) 0.7 x10^3/uL (0.0-1.1) Eosinophils # (Auto) 0.1 x10^3/uL (0.0-0.7) Basophils # (Auto) 0.1 x10^3/uL (0.0-0.2) Laboratory Tests Test 04/12/17 05:00 04/12/17 05:40 Sodium Level 140 mmol/L (136-145) Potassium Level 4.1 mmol/L (3.5-5.1) Chloride Level 106 mmol/L (98-107) Carbon Dioxide Level 26 mmol/L (21-32) Anion Gap 8 (6-14) Blood Urea Nitrogen 10 mg/dL (8-26) Creatinine 0.9 mg/dL (0.7-1.3) Estimated GFR (Cockcroft-Gault) 119.9 Glucose Level 105 mg/dL (70-99) Calcium Level 8.1 mg/dL (8.5-10.1) White Blood Count 12.2 x10^3/uL (4.0-11.0) Red Blood Count 4.33 x10^6/uL (4.30-5.70) Hemoglobin 12.1 g/dL (13.0-17.5) Hematocrit 37.6 % (39.0-53.0) Mean Corpuscular Volume 87 fL (79-100) Mean Corpuscular Hemoglobin 28 pg (25-35) Mean Corpuscular Hemoglobin Concent 32 g/dL (31-37) Red Cell Distribution Width 14.4 % (11.5-14.5) Platelet Count 166 x10^3/uL (140-400) Neutrophils (%) (Auto) 61 % (31-73) Lymphocytes (%) (Auto) 32 % (24-48) Monocytes (%) (Auto) 5 % (0-9) Eosinophils (%) (Auto) 1 % (0-3) Basophils (%) (Auto) 1 % (0-3) Neutrophils # (Auto) 7.4 x10^3uL (1.8-7.7) Lymphocytes # (Auto) 4.0 x10^3/uL (1.0-4.8) Monocytes # (Auto) 0.7 x10^3/uL (0.0-1.1) Eosinophils # (Auto) 0.1 x10^3/uL (0.0-0.7) Basophils # (Auto) 0.1 x10^3/uL (0.0-0.2) Problem List Problems Medical Problems: (1) Perirectal abscess Status: Acute Assessment/Plan s/p I&D, will ask wound care to see, continue abx Problems: KEN FERNÁNDEZ MD 04/12/17 1120: SURGICAL PROGRESS NOTE Assessment/Plan Agree with Daniela's assessment and plan. Problems: MICHAEL ALBARADO TECHNOLOGY OFFICER Apr 12, 2017 10:42 KEN FERNÁNDEZ MD Apr 12, 2017 11:20
[2017-04-12] MEDS ORDERED: DOCUSATE SODIUM 100 MG CAPSULE. PO PRN (11:45)
[2017-04-12] MEDS ORDERED: traMADol 50 MG TABLET PO PRN (11:45)
[2017-04-12] MEDS ORDERED: SENNOSIDES 8.6 MG TABLET PO PRN (11:45)
[2017-04-12] MEDS ORDERED: ONDANSETRON PF 4 MG/2 ML VIAL. IV PRN (11:45)
[2017-04-12] MEDS ORDERED: PIP/TAZO PER PHARMACY MC PRN (11:45)
[2017-04-12] MEDS ORDERED: MORPHINE SULFATE 4 MG/ML DISP.SYRIN. IV PRN (11:45)
[2017-04-12] MEDS ORDERED: hydrALAZINE 20 MG/ML VIAL. IVP PRN (11:45)
[2017-04-12] MEDS ORDERED: ACETAMINOPHEN 325 MG TABLET. PO PRN (11:45)
[2017-04-12] MEDS: PIPERACILLIN/TAZOBACTAM 4.5 GM in IV NORMAL SALINE 100ML 100 ML IV SCH ×2 (12:00→18:44)
--- NOTE | 2017-04-12 13:36 | PDOC ---
PROGRESS NOTES Chief Complaint Chief Complaint L groin abscess s/p i and d with packing external thrombosed hemorrhoids s/p sx removal Hidradenitis suppurativa Abscess under chin sepsis plan: fu with sx cond local wound care on vanco, add zosyn, fu wound cx pain control stool softner labs tmr History of Present Illness History of Present Illness ROS: no fever, chills, sob or chest pain c/o rectal pain for BM post left groin abcess i and d and external hemarrhoids removal higher wbc + wound cx with gram + rods and cocci, gram neg rods on stain Vitals Vitals Vital Signs Date Time Temp Pulse Resp B/P (MAP) Pulse Ox O2 Delivery O2 Flow Rate FiO2 04/12/17 11:00 97.9 71 18 141/90 (107) 99 Nasal Cannula 97.9 04/12/17 08:00 10.0 Physical Exam General: Alert, Oriented X3, Cooperative, No acute distress Heart: Regular rate, No murmurs Lungs: Clear, Other (No respiratory distress) Abdomen: Normal bowel sounds, Soft, No tenderness, Other ( ) Extremities: No clubbing, No edema Skin: Other (left groin packing in place, soft ) Labs LABS Laboratory Tests Test 04/12/17 05:00 04/12/17 05:40 Sodium Level 140 mmol/L (136-145) Potassium Level 4.1 mmol/L (3.5-5.1) Chloride Level 106 mmol/L (98-107) Carbon Dioxide Level 26 mmol/L (21-32) Anion Gap 8 (6-14) Blood Urea Nitrogen 10 mg/dL (8-26) Creatinine 0.9 mg/dL (0.7-1.3) Estimated GFR (Cockcroft-Gault) 119.9 Glucose Level 105 mg/dL (70-99) Calcium Level 8.1 mg/dL (8.5-10.1) White Blood Count 12.2 x10^3/uL (4.0-11.0) Red Blood Count 4.33 x10^6/uL (4.30-5.70) Hemoglobin 12.1 g/dL (13.0-17.5) Hematocrit 37.6 % (39.0-53.0) Mean Corpuscular Volume 87 fL (79-100) Mean Corpuscular Hemoglobin 28 pg (25-35) Mean Corpuscular Hemoglobin Concent 32 g/dL (31-37) Red Cell Distribution Width 14.4 % (11.5-14.5) Platelet Count 166 x10^3/uL (140-400) Neutrophils (%) (Auto) 61 % (31-73) Lymphocytes (%) (Auto) 32 % (24-48) Monocytes (%) (Auto) 5 % (0-9) Eosinophils (%) (Auto) 1 % (0-3) Basophils (%) (Auto) 1 % (0-3) Neutrophils # (Auto) 7.4 x10^3uL (1.8-7.7) Lymphocytes # (Auto) 4.0 x10^3/uL (1.0-4.8) Monocytes # (Auto) 0.7 x10^3/uL (0.0-1.1) Eosinophils # (Auto) 0.1 x10^3/uL (0.0-0.7) Basophils # (Auto) 0.1 x10^3/uL (0.0-0.2) Assessment and Plan Assessmemt and Plan Problems Medical Problems: (1) Perirectal abscess Status: Acute Problems: Comment Review of Relevant I have reviewed the following items raman (where applicable) has been applied. Labs Laboratory Tests Test 04/10/17 17:30 04/11/17 10:05 04/12/17 05:00 04/12/17 05:40 Urine Collection Type Unknown Urine Color Yellow Urine Clarity Clear Urine pH 5.5 Urine Specific [place] 1.015 Urine Protein Negative mg/dL (NEG-TRACE) Urine Glucose (UA) Negative mg/dL (NEG) Urine Ketones (Stick) Negative mg/dL (NEG) Urine Blood Negative (NEG) Urine Nitrite Negative (NEG) Urine Bilirubin Negative (NEG) Urine Urobilinogen Dipstick 0.2 mg/dL (0.2 mg/dL) Urine Leukocyte Esterase Negative (NEG) Urine RBC 0 /HPF (0-2) Urine WBC 1-4 /HPF (0-4) Urine Bacteria 0 /HPF (0-FEW) Urine Mucus Mod /LPF Urine Opiates Screen Pos (NEG) Urine Methadone Screen Neg (NEG) Urine Barbiturates Neg (NEG) Urine Phencyclidine Screen Pos (NEG) Urine Amphetamine/Methamphetamine Neg (NEG) Urine Benzodiazepines Screen Pos (NEG) Urine Cocaine Screen Neg (NEG) Urine Cannabinoids Screen Pos (NEG) Urine Ethyl Alcohol Neg (NEG) Vancomycin Level Trough 11.8 mcg/mL (10.0-20.0) Vancomycin Last Dose Date 04/11/17 Vancomycin Last Dose Time 0200 Sodium Level 140 mmol/L (136-145) Potassium Level 4.1 mmol/L (3.5-5.1) Chloride Level 106 mmol/L (98-107) Carbon Dioxide Level 26 mmol/L (21-32) Anion Gap 8 (6-14) Blood Urea Nitrogen 10 mg/dL (8-26) Creatinine 0.9 mg/dL (0.7-1.3) Estimated GFR (Cockcroft-Gault) 119.9 Glucose Level 105 mg/dL (70-99) Calcium Level 8.1 mg/dL (8.5-10.1) White Blood Count 12.2 x10^3/uL (4.0-11.0) Red Blood Count 4.33 x10^6/uL (4.30-5.70) Hemoglobin 12.1 g/dL (13.0-17.5) Hematocrit 37.6 % (39.0-53.0) Mean Corpuscular Volume 87 fL (79-100) Mean Corpuscular Hemoglobin 28 pg (25-35) Mean Corpuscular Hemoglobin Concent 32 g/dL (31-37) Red Cell Distribution Width 14.4 % (11.5-14.5) Platelet Count 166 x10^3/uL (140-400) Neutrophils (%) (Auto) 61 % (31-73) Lymphocytes (%) (Auto) 32 % (24-48) Monocytes (%) (Auto) 5 % (0-9) Eosinophils (%) (Auto) 1 % (0-3) Basophils (%) (Auto) 1 % (0-3) Neutrophils # (Auto) 7.4 x10^3uL (1.8-7.7) Lymphocytes # (Auto) 4.0 x10^3/uL (1.0-4.8) Monocytes # (Auto) 0.7 x10^3/uL (0.0-1.1) Eosinophils # (Auto) 0.1 x10^3/uL (0.0-0.7) Basophils # (Auto) 0.1 x10^3/uL (0.0-0.2) Laboratory Tests Test 04/12/17 05:00 04/12/17 05:40 Sodium Level 140 mmol/L (136-145) Potassium Level 4.1 mmol/L (3.5-5.1) Chloride Level 106 mmol/L (98-107) Carbon Dioxide Level 26 mmol/L (21-32) Anion Gap 8 (6-14) Blood Urea Nitrogen 10 mg/dL (8-26) Creatinine 0.9 mg/dL (0.7-1.3) Estimated GFR (Cockcroft-Gault) 119.9 Glucose Level 105 mg/dL (70-99) Calcium Level 8.1 mg/dL (8.5-10.1) White Blood Count 12.2 x10^3/uL (4.0-11.0) Red Blood Count 4.33 x10^6/uL (4.30-5.70) Hemoglobin 12.1 g/dL (13.0-17.5) Hematocrit 37.6 % (39.0-53.0) Mean Corpuscular Volume 87 fL (79-100) Mean Corpuscular Hemoglobin 28 pg (25-35) Mean Corpuscular Hemoglobin Concent 32 g/dL (31-37) Red Cell Distribution Width 14.4 % (11.5-14.5) Platelet Count 166 x10^3/uL (140-400) Neutrophils (%) (Auto) 61 % (31-73) Lymphocytes (%) (Auto) 32 % (24-48) Monocytes (%) (Auto) 5 % (0-9) Eosinophils (%) (Auto) 1 % (0-3) Basophils (%) (Auto) 1 % (0-3) Neutrophils # (Auto) 7.4 x10^3uL (1.8-7.7) Lymphocytes # (Auto) 4.0 x10^3/uL (1.0-4.8) Monocytes # (Auto) 0.7 x10^3/uL (0.0-1.1) Eosinophils # (Auto) 0.1 x10^3/uL (0.0-0.7) Basophils # (Auto) 0.1 x10^3/uL (0.0-0.2) Microbiology 04/10/17 Blood Culture - Preliminary, Resulted NO GROWTH AFTER 2 DAYS 04/11/17 Gram Stain - Final, Complete Medications Current Medications Vancomycin HCl (Vanco Per Pharmacy) 1 each PRN DAILY PRN MC ABCESS Last administered on 04/11/17 12:33; Start 04/10/17 at 09:00 Piperacillin Sod/ Tazobactam Sod 4.5 gm/Sodium Chloride 100 ml @ 200 mls/hr 1X ONCE IV Last administered on 04/10/17 01:08; Start 04/10/17 at 01:00; Stop 04/10/17 at 01:29; Status DC Sodium Chloride 1,000 ml @ 1,000 mls/hr 1X ONCE IV Last administered on 01:07; Start 04/10/17 at 00:45; Stop 04/10/17 at 01:44; Status DC Vancomycin HCl 2 gm/Sodium Chloride 500 ml @ 250 mls/hr 1X ONCE IV Last administered on 04/10/17 01:51; Start 04/10/17 at 01:30; Stop 04/10/17 at 03:29 ; Status DC Iohexol (Omnipaque 300 Mg/ml) 75 ml 1X ONCE IV Last administered on 04/10/17 01:42; Start 04/10/17 at 01:30; Stop 04/10/17 at 01:31; Status DC Info (Do NOT chart on this entry -- for MONITORING) 1 each PRN DAILY PRN MC SEE COMMENTS; Start 04/10/17 at 01:00; Stop 04/12/17 at 00:59; Status DC Ondansetron HCl (Zofran) 4 mg PRN Q8HRS PRN IV NAUSEA/VOMITING; Start 04/10/17 at 01:00; Stop 04/10/17 at 17:07; Status DC Morphine Sulfate 4 mg PRN Q2HR PRN IV SEVERE PAIN Last administered on 08:08; Start 04/10/17 at 01:00; Stop 04/10/17 at 17:07; Status DC Acetaminophen (Tylenol) 650 mg PRN Q4HRS PRN PO FEVER; Start 04/10/17 at 01:00 ; Stop 04/11/17 at 00:59; Status DC Sodium Chloride 1,000 ml @ 125 mls/hr 1X ONCE IV Last administered on 01:00; Start 04/10/17 at 01:00; Stop 04/10/17 at 08:59; Status DC Clonidine HCl (Catapres) 0.1 mg PRN Q6HRS PRN PO ELEVATED BP, SEE COMMENTS Last administered on 04/10/17 01:40; Start 04/10/17 at 01:00 Vancomycin HCl 1.25 gm/Sodium Chloride 250 ml @ 167 mls/hr Q8H IV Last administered on 04/12/17 11:29; Start 04/10/17 at 10:00 Vancomycin HCl 1 each 1X ONCE MC Last administered on 04/11/17 10:00; Start 04/11/17 at 09:30; Stop 04/11/17 at 09:31; Status DC Ondansetron HCl (Zofran) 4 mg PRN Q6HRS PRN IV NAUSEA/VOMITING; Start 04/10/17 at 10:30; Stop 04/10/17 at 19:00; Status DC Fentanyl Citrate (Fentanyl 2ml Vial) 25 mcg PRN Q5MIN PRN IV MILD PAIN; Start 04/10/17 at 10:30; Stop 04/10/17 at 17:07; Status DC Fentanyl Citrate (Fentanyl 2ml Vial) 50 mcg PRN Q5MIN PRN IV MODERATE PAIN Last administered on 04/10/17 15:23; Start 04/10/17 at 10:30; Stop 04/10/17 at 17:07; Status DC Morphine Sulfate 1 mg PRN Q10MIN PRN IV SEVERE PAIN; Start 04/10/17 at 10:30; Stop 04/10/17 at 17:07; Status DC Ringer's Solution 1,000 ml @ 30 mls/hr Q24H IV Last administered on 04/10/17 13:20; Start 04/10/17 at 10:30; Stop 04/10/17 at 19:00; Status DC Lidocaine HCl 2 ml PRN 1X PRN ID PRIOR TO IV START; Start 04/10/17 at 10:30; Stop 04/10/17 at 19:00; Status DC Hydromorphone HCl (Dilaudid) 0.5 mg PRN Q10MIN PRN IV SEV PAIN, Second choice; Start 04/10/17 at 10:30; Stop 04/10/17 at 17:07; Status DC Prochlorperazine Edisylate (Compazine) 5 mg PACU PRN PRN IV NAUSEA, MRX1; Start 04/10/17 at 10:30; Stop 04/10/17 at 19:00; Status DC Cefazolin Sodium/ Dextrose 50 ml @ 100 mls/hr 1X ONCE IV Last administered on 04/10/17t 14:17; Start 04/10/17 at 12:00; Stop 04/10/17 at 12:29; Status DC Dexamethasone Sodium Phosphate (Decadron) 20 mg STK-MED ONCE .ROUTE ; Start at 13:54; Stop 04/10/17 at 13:55; Status DC Ondansetron HCl (Zofran) 4 mg STK-MED ONCE .ROUTE ; Start 04/10/17 at 13:54; Stop 04/10/17 at 13:55; Status DC Propofol 20 ml @ As Directed STK-MED ONCE IV ; Start 04/10/17 at 13:54; Stop at 13:55; Status DC Lidocaine HCl (Lidocaine Pf 2% Vial) 5 ml STK-MED ONCE .ROUTE ; Start 04/10/17 at 13:54; Stop 04/10/17 at 13:55; Status DC Midazolam HCl (Versed) 2 mg STK-MED ONCE .ROUTE ; Start 04/10/17 at 13:54; Stop 04/10/17 at 13:55; Status DC Fentanyl Citrate (Fentanyl 2ml Vial) 100 mcg STK-MED ONCE .ROUTE ; Start at 13:54; Stop 04/10/17 at 13:55; Status DC Neomycin/ Polymyxin/ Bacitracin (Triple Antibiotic Ointment) 1 pkt STK-MED ONCE TP Last administered on 04/10/17t 14:22; Start 04/10/17 at 13:57; Stop at 13:58; Status DC Bupivacaine HCl/ Epinephrine Bitart (Sensorcain-Mpf Epi 0.5%-1:[id number]) 30 ml STK -MED ONCE .ROUTE Last administered on 04/10/17t 14:22; Start 04/10/17 at 13:57 ; Stop 04/10/17 at 13:58; Status DC Famotidine (Pepcid) 20 mg STK-MED ONCE .ROUTE ; Start 04/10/17 at 14:17; Stop at 14:18; Status DC Fentanyl Citrate (Fentanyl 2ml Vial) 100 mcg STK-MED ONCE .ROUTE ; Start at 14:18; Stop 04/10/17 at 14:19; Status DC Fentanyl Citrate (Fentanyl 2ml Vial) 100 mcg STK-MED ONCE .ROUTE ; Start at 14:27; Stop 04/10/17 at 14:28; Status DC Neomycin/ Polymyxin/ Bacitracin (Triple Antibiotic Ointment) 1 pkt STK-MED ONCE TP Last administered on 04/10/17 14:22; Start 04/10/17 at 14:28; Stop at 14:29; Status DC Oxycodone/ Acetaminophen (Percocet 5/325) 1 tab PRN Q4HRS PRN PO PAIN; Start at 14:45 Oxycodone/ Acetaminophen (Percocet 5/325) 2 tab PRN Q4HRS PRN PO PAIN Last administered on 04/10/17 20:44; Start 04/10/17 at 14:45 Ketorolac Tromethamine (Toradol) 15 mg Q6HRS IV Last administered on 04/12/17 00:45; Start 04/10/17 at 18:00; Stop 04/12/17 at 17:59 Fentanyl Citrate (Fentanyl 2ml Vial) 100 mcg STK-MED ONCE .ROUTE ; Start at 15:10; Stop 04/10/17 at 15:11; Status DC Bisacodyl (Dulcolax Tab) 5 mg DAILY PO Last administered on 04/12/17 08:26; Start 04/10/17 at 17:00 Nicotine (Nicoderm Cq 14mg) 1 patch DAILY TD Last administered on 04/12/17 08: 27; Start 04/10/17 at 18:00 Ondansetron HCl (Zofran) 4 mg PRN Q6HRS PRN IV NAUSEA/VOMITING; Start 04/11/17 at 07:30; Stop 04/11/17 at 13:00; Status DC Fentanyl Citrate (Fentanyl 2ml Vial) 25 mcg PRN Q5MIN PRN IV MILD PAIN; Start 04/11/17 at 07:30; Stop 04/11/17 at 13:00; Status DC Fentanyl Citrate (Fentanyl 2ml Vial) 50 mcg PRN Q5MIN PRN IV MODERATE PAIN Last administered on 04/11/17 08:59; Start 04/11/17 at 07:30; Stop 04/11/17 at 13:00; Status DC Morphine Sulfate 1 mg PRN Q10MIN PRN IV SEVERE PAIN; Start 04/11/17 at 07:30; Stop 04/11/17 at 13:00; Status DC Ringer's Solution 1,000 ml @ 30 mls/hr Q24H IV Last administered on 04/11/17 07:50; Start 04/11/17 at 07:19; Stop 04/11/17 at 19:18; Status DC Lidocaine HCl 2 ml PRN 1X PRN ID PRIOR TO IV START; Start 04/11/17 at 07:30; Stop 04/11/17 at 13:00; Status DC Hydromorphone HCl (Dilaudid) 0.5 mg PRN Q10MIN PRN IV SEV PAIN, Second choice; Start 04/11/17 at 07:30; Stop 04/11/17 at 13:00; Status DC Prochlorperazine Edisylate (Compazine) 5 mg PACU PRN PRN IV NAUSEA, MRX1; Start 04/11/17 at 07:30; Stop 04/11/17 at 13:00; Status DC Dexamethasone Sodium Phosphate (Decadron) 20 mg STK-MED ONCE .ROUTE ; Start at 07:44; Stop 04/11/17 at 07:45; Status DC Ondansetron HCl (Zofran) 4 mg STK-MED ONCE .ROUTE ; Start 04/11/17 at 07:44; Stop 04/11/17 at 07:45; Status DC Propofol 20 ml @ As Directed STK-MED ONCE IV ; Start 04/11/17 at 07:44; Stop at 07:45; Status DC Lidocaine HCl (Lidocaine Pf 2% Vial) 5 ml STK-MED ONCE .ROUTE ; Start 04/11/17 at 07:44; Stop 04/11/17 at 07:45; Status DC Fentanyl Citrate (Fentanyl 2ml Vial) 100 mcg STK-MED ONCE .ROUTE ; Start at 07:46; Stop 04/11/17 at 07:47; Status DC Midazolam HCl (Versed) 2 mg STK-MED ONCE .ROUTE ; Start 04/11/17 at 07:53; Stop 04/11/17 at 07:54; Status DC Fentanyl Citrate (Fentanyl 2ml Vial) 100 mcg STK-MED ONCE .ROUTE ; Start at 08:34; Stop 04/11/17 at 08:35; Status DC Piperacillin Sod/ Tazobactam Sod 4.5 gm/Sodium Chloride 100 ml @ 200 mls/hr Q6HRS IV ; Start 04/12/17 at 12:00 Piperacillin Sod/ Tazobactam Sod (Zosyn Per Pharmacy) 1 each PRN DAILY PRN MC SEE COMMENTS; Start 04/12/17 at 11:45 Acetaminophen (Tylenol) 650 mg PRN Q6HRS PRN PO FEVER; Start 04/12/17 at 11:45 Ondansetron HCl (Zofran) 4 mg PRN Q6HRS PRN IV NAUSEA/VOMITING; Start 04/12/17 at 11:45 Morphine Sulfate 2 mg PRN Q2HR PRN IV PAIN; Start 04/12/17 at 11:45 Tramadol HCl (Ultram) 50 mg PRN Q6HRS PRN PO PAIN; Start 04/12/17 at 11:45 Hydralazine HCl (Apresoline) 10 mg PRN Q4HRS PRN IVP ELEVATED BP, SEE COMMENTS ; Start 04/12/17 at 11:45 Docusate Sodium (Colace) 100 mg PRN DAILY PRN PO CONSTIPATION; Start 04/12/17 at 11:45 Sennosides (Senna) 17.2 mg PRN BID PRN PO CONSTIPATION; Start 04/12/17 at 11:45 Vitals/I & O Vital Sign - Last 24 Hours 04/11/17 04/11/17 04/11/17 04/11/17 15:03 19:00 20:00 22:49 Temp 97.9 97.8 98.1 97.9 97.8 98.1 Pulse 73 66 72 Resp 18 17 18 B/P (MAP) 117/61 (79) 144/73 (96) 148/74 (98) Pulse Ox 99 98 97 O2 Delivery Room Air Room Air Room Air 04/12/17 04/12/17 04/12/17 04/12/17 02:43 07:00 08:00 11:00 Temp 98.1 97.7 97.9 98.1 97.7 97.9 Pulse 61 57 71 Resp 16 18 18 B/P (MAP) 146/90 (108) 134/92 (106) 141/90 (107) Pulse Ox 100 98 99 O2 Delivery Room Air Room Air Room Air Nasal Cannula O2 Flow Rate 10.0 Intake and Output 04/11/17 04/11/17 04/12/17 14:59 22:59 06:59 Intake Total 310 ml 1100 ml 800 ml Output Total 750 ml Balance 310 ml 350 ml 800 ml HUANG GRAVES MD Apr 12, 2017 13:36
[2017-04-12] MEDS: VANCOMYCIN PER PHARMACY MC PRN (16:51)
--- NOTE | 2017-04-12 17:25 | PATHOLOGY ---
PATHOLOGY REPORT * * * * * * * * FINAL DIAGNOSIS: Segments of skin and underlying fibromuscular tissue, hemorrhoidectomy: - Hemorrhoids. Comment: There is no evidence of malignancy. (JPM:osito; 04/12/2017) REPORT ELECTRONICALLY SIGNED BY: Erick Breen M.D. DATE/TIME: 04/12/2017 17:24 * * * * * * * * GROSS PATHOLOGY: Received in formalin labeled "Raffaele Brown, hemorrhoids," are three segments of samano-pink epithelial covered tissue ranging from 1.2 to 4.5 cm in maximum dimensions. The epithelial surfaces appear intact, without grossly apparent lesions. On cut section, the subepithelial tissue has a highly vascular appearance. [employer] tissue is submitted in cassette A1. (JPM; 04/11/17) INITIAL CPT CODE(S): A; 20052 Professional services performed [place] [facility] [place] [address] Technical services performed by [facility] at [address] [place] [address], [facility] [address], [place] [address]. SPECIMEN(S) RECEIVED: A.Hemorrhoids CLINICAL HISTORY: Perirectal abscess PATIENT: RAFFAELE BROWN /AGE: 209/27/1985 (Age: 31) PATIENT #: [id number] ALT CASE #: SPECIMEN COLLECTION DATE: 04/10/2017 SPECIMEN RECEIVED DATE: 04/11/2017 [facility] - [address] [place] [address] - PHONE: [phone] * * * END OF REPORT * * *
[2017-04-12] MEDS: oxyCODONE/APAP 5/325 1 TAB TABLET PO PRN (20:05)
[2017-04-12] MEDS: metroNIDAZOLE 500 MG TABLET PO SCH (21:53)
[2017-04-12] MEDS: AMOXICILLIN/K CLAV 875/125MG TABLET. PO SCH (21:53)
[2017-04-13] MEDS: ONDANSETRON ODT 4 MG TAB.RAPDIS. PO PRN ×2 (02:22→09:07)
[2017-04-13 02:49] VITALS: BP 131/86
[2017-04-13] MEDS: metroNIDAZOLE 500 MG TABLET PO SCH ×2 (06:05→13:44)
[2017-04-13 07:00] VITALS: BP 140/86
[2017-04-13] MEDS: BISACODYL 5 MG TABLET.DR. PO SCH (09:00)
[2017-04-13] MEDS: AMOXICILLIN/K CLAV 875/125MG TABLET. PO SCH (09:00)
[2017-04-13] MEDS: NICOTINE 14MG PATCH. TD SCH (09:00)
[2017-04-13] MEDS: oxyCODONE/APAP 5/325 1 TAB TABLET PO PRN (09:07)
[2017-04-13 09:25] LABS: BASO # 0.1 x10^3/uL (0.0-0.2); BASO % 1 % (0-3); EOS % 1 % (0-3); HEMATOCRIT 39.9 % (39.0-53.0); HEMOGLOBIN 13.4 g/dL (13.0-17.5); LYMPH % 10 % (24-48); MEAN CORPUSCULAR HEMOGLOBIN 28 pg (25-35); MEAN CORPUSCULAR HGB CONC 34 g/dL (31-37); MEAN CORPUSCULAR VOLUME 84 fL (79-100); MONO % 7 % (0-9); NEUT % 81 % (31-73); PLATELET COUNT 182 x10^3/uL (140-400); RED BLOOD COUNT 4.73 x10^6/uL (4.30-5.70); RED CELL DISTRIBUTION WIDTH 14.1 % (11.5-14.5); WHITE BLOOD COUNT 10.4 x10^3/uL (4.0-11.0)
[2017-04-13 09:49] LABS: CALCIUM 8.4 mg/dL (8.5-10.1); GFR 106.2
[2017-04-13 11:00] VITALS: BP 155/80
--- NOTE | 2017-04-13 11:57 | PDOC ---
PROGRESS NOTES Chief Complaint Chief Complaint L groin abscess External thrombosed hemorrhoids Hidradenitis suppurativa Abscess under chin Sepsis History of Present Illness History of Present Illness Has tenderness near groin abscess. Anxious when palpating area. c/o rectal discomfort during BM Vitals Vitals Vital Signs Date Time Temp Pulse Resp B/P (MAP) Pulse Ox O2 Delivery O2 Flow Rate FiO2 04/13/17 11:00 98.0 68 22 155/80 (105) 98 98.0 04/13/17 10:07 Room Air 04/12/17 08:00 10.0 Physical Exam General: Alert, Oriented X3, Cooperative, No acute distress Heart: Regular rate, No murmurs Lungs: Clear, Other (No acute respiratory distress) Abdomen: Normal bowel sounds, Soft, No tenderness, Other ( ) Extremities: No clubbing, No edema Skin: No rashes, Other (left groin packing in place, soft ) Labs LABS Laboratory Tests Test 04/13/17 09:15 White Blood Count 10.4 x10^3/uL (4.0-11.0) Red Blood Count 4.73 x10^6/uL (4.30-5.70) Hemoglobin 13.4 g/dL (13.0-17.5) Hematocrit 39.9 % (39.0-53.0) Mean Corpuscular Volume 84 fL (79-100) Mean Corpuscular Hemoglobin 28 pg (25-35) Mean Corpuscular Hemoglobin Concent 34 g/dL (31-37) Red Cell Distribution Width 14.1 % (11.5-14.5) Platelet Count 182 x10^3/uL (140-400) Neutrophils (%) (Auto) 81 % (31-73) Lymphocytes (%) (Auto) 10 % (24-48) Monocytes (%) (Auto) 7 % (0-9) Eosinophils (%) (Auto) 1 % (0-3) Basophils (%) (Auto) 1 % (0-3) Neutrophils # (Auto) 8.5 x10^3uL (1.8-7.7) Lymphocytes # (Auto) 1.0 x10^3/uL (1.0-4.8) Monocytes # (Auto) 0.8 x10^3/uL (0.0-1.1) Eosinophils # (Auto) 0.1 x10^3/uL (0.0-0.7) Basophils # (Auto) 0.1 x10^3/uL (0.0-0.2) Sodium Level 138 mmol/L (136-145) Potassium Level 4.0 mmol/L (3.5-5.1) Chloride Level 102 mmol/L (98-107) Carbon Dioxide Level 29 mmol/L (21-32) Anion Gap 7 (6-14) Blood Urea Nitrogen 13 mg/dL (8-26) Creatinine 1.0 mg/dL (0.7-1.3) Estimated GFR (Cockcroft-Gault) 106.2 Glucose Level 96 mg/dL (70-99) Calcium Level 8.4 mg/dL (8.5-10.1) Review of Systems Review of Systems c/o groin abscess tenderness c/o no appetite Dressing CDI Assessment and Plan Assessmemt and Plan L groin abscess: fu w/ sx. Continue wound care & Abx. Pain control prn External thrombosed hemorrhoids: continue to monitor, continue Abx, wound care Hidradenitis suppurativa: monitor Abscess under chin: monitor Sepsis: continue Abx D/c when ok w/ surgery Problems: Comment Review of Relevant I have reviewed the following items raman (where applicable) has been applied. Labs Laboratory Tests Test 04/12/17 05:00 04/12/17 05:40 04/13/17 09:15 Sodium Level 140 mmol/L (136-145) 138 mmol/L (136-145) Potassium Level 4.1 mmol/L (3.5-5.1) 4.0 mmol/L (3.5-5.1) Chloride Level 106 mmol/L (98-107) 102 mmol/L (98-107) Carbon Dioxide Level 26 mmol/L (21-32) 29 mmol/L (21-32) Anion Gap 8 (6-14) 7 (6-14) Blood Urea Nitrogen 10 mg/dL (8-26) 13 mg/dL (8-26) Creatinine 0.9 mg/dL (0.7-1.3) 1.0 mg/dL (0.7-1.3) Estimated GFR (Cockcroft-Gault) 119.9 106.2 Glucose Level 105 mg/dL (70-99) 96 mg/dL (70-99) Calcium Level 8.1 mg/dL (8.5-10.1) 8.4 mg/dL (8.5-10.1) White Blood Count 12.2 x10^3/uL (4.0-11.0) 10.4 x10^3/uL (4.0-11.0) Red Blood Count 4.33 x10^6/uL (4.30-5.70) 4.73 x10^6/uL (4.30-5.70) Hemoglobin 12.1 g/dL (13.0-17.5) 13.4 g/dL (13.0-17.5) Hematocrit 37.6 % (39.0-53.0) 39.9 % (39.0-53.0) Mean Corpuscular Volume 87 fL (79-100) 84 fL (79-100) Mean Corpuscular Hemoglobin 28 pg (25-35) 28 pg (25-35) Mean Corpuscular Hemoglobin Concent 32 g/dL (31-37) 34 g/dL (31-37) Red Cell Distribution Width 14.4 % (11.5-14.5) 14.1 % (11.5-14.5) Platelet Count 166 x10^3/uL (140-400) 182 x10^3/uL (140-400) Neutrophils (%) (Auto) 61 % (31-73) 81 % (31-73) Lymphocytes (%) (Auto) 32 % (24-48) 10 % (24-48) Monocytes (%) (Auto) 5 % (0-9) 7 % (0-9) Eosinophils (%) (Auto) 1 % (0-3) 1 % (0-3) Basophils (%) (Auto) 1 % (0-3) 1 % (0-3) Neutrophils # (Auto) 7.4 x10^3uL (1.8-7.7) 8.5 x10^3uL (1.8-7.7) Lymphocytes # (Auto) 4.0 x10^3/uL (1.0-4.8) 1.0 x10^3/uL (1.0-4.8) Monocytes # (Auto) 0.7 x10^3/uL (0.0-1.1) 0.8 x10^3/uL (0.0-1.1) Eosinophils # (Auto) 0.1 x10^3/uL (0.0-0.7) 0.1 x10^3/uL (0.0-0.7) Basophils # (Auto) 0.1 x10^3/uL (0.0-0.2) 0.1 x10^3/uL (0.0-0.2) Laboratory Tests Test 04/13/17 09:15 White Blood Count 10.4 x10^3/uL (4.0-11.0) Red Blood Count 4.73 x10^6/uL (4.30-5.70) Hemoglobin 13.4 g/dL (13.0-17.5) Hematocrit 39.9 % (39.0-53.0) Mean Corpuscular Volume 84 fL (79-100) Mean Corpuscular Hemoglobin 28 pg (25-35) Mean Corpuscular Hemoglobin Concent 34 g/dL (31-37) Red Cell Distribution Width 14.1 % (11.5-14.5) Platelet Count 182 x10^3/uL (140-400) Neutrophils (%) (Auto) 81 % (31-73) Lymphocytes (%) (Auto) 10 % (24-48) Monocytes (%) (Auto) 7 % (0-9) Eosinophils (%) (Auto) 1 % (0-3) Basophils (%) (Auto) 1 % (0-3) Neutrophils # (Auto) 8.5 x10^3uL (1.8-7.7) Lymphocytes # (Auto) 1.0 x10^3/uL (1.0-4.8) Monocytes # (Auto) 0.8 x10^3/uL (0.0-1.1) Eosinophils # (Auto) 0.1 x10^3/uL (0.0-0.7) Basophils # (Auto) 0.1 x10^3/uL (0.0-0.2) Sodium Level 138 mmol/L (136-145) Potassium Level 4.0 mmol/L (3.5-5.1) Chloride Level 102 mmol/L (98-107) Carbon Dioxide Level 29 mmol/L (21-32) Anion Gap 7 (6-14) Blood Urea Nitrogen 13 mg/dL (8-26) Creatinine 1.0 mg/dL (0.7-1.3) Estimated GFR (Cockcroft-Gault) 106.2 Glucose Level 96 mg/dL (70-99) Calcium Level 8.4 mg/dL (8.5-10.1) Microbiology 04/10/17 Blood Culture - Preliminary, Resulted NO GROWTH AFTER 3 DAYS 04/11/17 Gram Stain - Final, Complete Medications Current Medications Vancomycin HCl (Vanco Per Pharmacy) 1 each PRN DAILY PRN MC ABCESS Last administered on 04/12/17 16:51; Start 04/10/17 at 09:00; Stop 04/12/17 at 20:52 ; Status DC Piperacillin Sod/ Tazobactam Sod 4.5 gm/Sodium Chloride 100 ml @ 200 mls/hr 1X ONCE IV Last administered on 04/10/17 01:08; Start 04/10/17 at 01:00; Stop 04/10/17 at 01:29; Status DC Sodium Chloride 1,000 ml @ 1,000 mls/hr 1X ONCE IV Last administered on 01:07; Start 04/10/17 at 00:45; Stop 04/10/17 at 01:44; Status DC Vancomycin HCl 2 gm/Sodium Chloride 500 ml @ 250 mls/hr 1X ONCE IV Last administered on 04/10/17 01:51; Start 04/10/17 at 01:30; Stop 04/10/17 at 03:29 ; Status DC Iohexol (Omnipaque 300 Mg/ml) 75 ml 1X ONCE IV Last administered on 04/10/17 01:42; Start 04/10/17 at 01:30; Stop 04/10/17 at 01:31; Status DC Info (Do NOT chart on this entry -- for MONITORING) 1 each PRN DAILY PRN MC SEE COMMENTS; Start 04/10/17 at 01:00; Stop 04/12/17 at 00:59; Status DC Ondansetron HCl (Zofran) 4 mg PRN Q8HRS PRN IV NAUSEA/VOMITING; Start 04/10/17 at 01:00; Stop 04/10/17 at 17:07; Status DC Morphine Sulfate 4 mg PRN Q2HR PRN IV SEVERE PAIN Last administered on 08:08; Start 04/10/17 at 01:00; Stop 04/10/17 at 17:07; Status DC Acetaminophen (Tylenol) 650 mg PRN Q4HRS PRN PO FEVER; Start 04/10/17 at 01:00 ; Stop 04/11/17 at 00:59; Status DC Sodium Chloride 1,000 ml @ 125 mls/hr 1X ONCE IV Last administered on 01:00; Start 04/10/17 at 01:00; Stop 04/10/17 at 08:59; Status DC Clonidine HCl (Catapres) 0.1 mg PRN Q6HRS PRN PO ELEVATED BP, SEE COMMENTS Last administered on 04/10/17 01:40; Start 04/10/17 at 01:00 Vancomycin HCl 1.25 gm/Sodium Chloride 250 ml @ 167 mls/hr Q8H IV Last administered on 04/12/17 11:29; Start 04/10/17 at 10:00; Stop 04/12/17 at 20:51 ; Status DC Vancomycin HCl 1 each 1X ONCE MC Last administered on 04/11/17 10:00; Start 04/11/17 at 09:30; Stop 04/11/17 at 09:31; Status DC Ondansetron HCl (Zofran) 4 mg PRN Q6HRS PRN IV NAUSEA/VOMITING; Start 04/10/17 at 10:30; Stop 04/10/17 at 19:00; Status DC Fentanyl Citrate (Fentanyl 2ml Vial) 25 mcg PRN Q5MIN PRN IV MILD PAIN; Start 04/10/17 at 10:30; Stop 04/10/17 at 17:07; Status DC Fentanyl Citrate (Fentanyl 2ml Vial) 50 mcg PRN Q5MIN PRN IV MODERATE PAIN Last administered on 04/10/17 15:23; Start 04/10/17 at 10:30; Stop 04/10/17 at 17:07; Status DC Morphine Sulfate 1 mg PRN Q10MIN PRN IV SEVERE PAIN; Start 04/10/17 at 10:30; Stop 04/10/17 at 17:07; Status DC Ringer's Solution 1,000 ml @ 30 mls/hr Q24H IV Last administered on 8/20/17at 13:20; Start 04/10/17 at 10:30; Stop 04/10/17 at 19:00; Status DC Lidocaine HCl 2 ml PRN 1X PRN ID PRIOR TO IV START; Start 04/10/17 at 10:30; Stop 04/10/17 at 19:00; Status DC Hydromorphone HCl (Dilaudid) 0.5 mg PRN Q10MIN PRN IV SEV PAIN, Second choice; Start 04/10/17 at 10:30; Stop 04/10/17 at 17:07; Status DC Prochlorperazine Edisylate (Compazine) 5 mg PACU PRN PRN IV NAUSEA, MRX1; Start 04/10/17 at 10:30; Stop 04/10/17 at 19:00; Status DC Cefazolin Sodium/ Dextrose 50 ml @ 100 mls/hr 1X ONCE IV Last administered on 04/10/17t 14:17; Start 04/10/17 at 12:00; Stop 04/10/17 at 12:29; Status DC Dexamethasone Sodium Phosphate (Decadron) 20 mg STK-MED ONCE .ROUTE ; Start at 13:54; Stop 04/10/17 at 13:55; Status DC Ondansetron HCl (Zofran) 4 mg STK-MED ONCE .ROUTE ; Start 04/10/17 at 13:54; Stop 04/10/17 at 13:55; Status DC Propofol 20 ml @ As Directed STK-MED ONCE IV ; Start 04/10/17 at 13:54; Stop at 13:55; Status DC Lidocaine HCl (Lidocaine Pf 2% Vial) 5 ml STK-MED ONCE .ROUTE ; Start 04/10/17 at 13:54; Stop 04/10/17 at 13:55; Status DC Midazolam HCl (Versed) 2 mg STK-MED ONCE .ROUTE ; Start 04/10/17 at 13:54; Stop 04/10/17 at 13:55; Status DC Fentanyl Citrate (Fentanyl 2ml Vial) 100 mcg STK-MED ONCE .ROUTE ; Start at 13:54; Stop 04/10/17 at 13:55; Status DC Neomycin/ Polymyxin/ Bacitracin (Triple Antibiotic Ointment) 1 pkt STK-MED ONCE TP Last administered on 04/10/17 14:22; Start 04/10/17 at 13:57; Stop at 13:58; Status DC Bupivacaine HCl/ Epinephrine Bitart (Sensorcain-Mpf Epi 0.5%-[id number]) 30 ml STK -MED ONCE .ROUTE Last administered on 04/10/17 14:22; Start 04/10/17 at 13:57 ; Stop 04/10/17 at 13:58; Status DC Famotidine (Pepcid) 20 mg STK-MED ONCE .ROUTE ; Start 04/10/17 at 14:17; Stop at 14:18; Status DC Fentanyl Citrate (Fentanyl 2ml Vial) 100 mcg STK-MED ONCE .ROUTE ; Start at 14:18; Stop 04/10/17 at 14:19; Status DC Fentanyl Citrate (Fentanyl 2ml Vial) 100 mcg STK-MED ONCE .ROUTE ; Start at 14:27; Stop 04/10/17 at 14:28; Status DC Neomycin/ Polymyxin/ Bacitracin (Triple Antibiotic Ointment) 1 pkt STK-MED ONCE TP Last administered on 04/10/17 14:22; Start 04/10/17 at 14:28; Stop at 14:29; Status DC Oxycodone/ Acetaminophen (Percocet 5/325) 1 tab PRN Q4HRS PRN PO PAIN Last administered on 04/13/17 09:07; Start 04/10/17 at 14:45 Oxycodone/ Acetaminophen (Percocet 5/325) 2 tab PRN Q4HRS PRN PO PAIN Last administered on 04/10/17 20:44; Start 04/10/17 at 14:45 Ketorolac Tromethamine (Toradol) 15 mg Q6HRS IV Last administered on 04/12/17 14:44; Start 04/10/17 at 18:00; Stop 04/12/17 at 17:59; Status DC Fentanyl Citrate (Fentanyl 2ml Vial) 100 mcg STK-MED ONCE .ROUTE ; Start at 15:10; Stop 04/10/17 at 15:11; Status DC Bisacodyl (Dulcolax Tab) 5 mg DAILY PO Last administered on 04/13/17 09:00; Start 04/10/17 at 17:00 Nicotine (Nicoderm Cq 14mg) 1 patch DAILY TD Last administered on 04/12/17 08: 27; Start 04/10/17 at 18:00 Ondansetron HCl (Zofran) 4 mg PRN Q6HRS PRN IV NAUSEA/VOMITING; Start 04/11/17 at 07:30; Stop 04/11/17 at 13:00; Status DC Fentanyl Citrate (Fentanyl 2ml Vial) 25 mcg PRN Q5MIN PRN IV MILD PAIN; Start 04/11/17 at 07:30; Stop 04/11/17 at 13:00; Status DC Fentanyl Citrate (Fentanyl 2ml Vial) 50 mcg PRN Q5MIN PRN IV MODERATE PAIN Last administered on 04/11/17 08:59; Start 04/11/17 at 07:30; Stop 04/11/17 at 13:00; Status DC Morphine Sulfate 1 mg PRN Q10MIN PRN IV SEVERE PAIN; Start 04/11/17 at 07:30; Stop 04/11/17 at 13:00; Status DC Ringer's Solution 1,000 ml @ 30 mls/hr Q24H IV Last administered on 04/11/17 07:50; Start 04/11/17 at 07:19; Stop 04/11/17 at 19:18; Status DC Lidocaine HCl 2 ml PRN 1X PRN ID PRIOR TO IV START; Start 04/11/17 at 07:30; Stop 04/11/17 at 13:00; Status DC Hydromorphone HCl (Dilaudid) 0.5 mg PRN Q10MIN PRN IV SEV PAIN, Second choice; Start 04/11/17 at 07:30; Stop 04/11/17 at 13:00; Status DC Prochlorperazine Edisylate (Compazine) 5 mg PACU PRN PRN IV NAUSEA, MRX1; Start 04/11/17 at 07:30; Stop 04/11/17 at 13:00; Status DC Dexamethasone Sodium Phosphate (Decadron) 20 mg STK-MED ONCE .ROUTE ; Start at 07:44; Stop 04/11/17 at 07:45; Status DC Ondansetron HCl (Zofran) 4 mg STK-MED ONCE .ROUTE ; Start 04/11/17 at 07:44; Stop 04/11/17 at 07:45; Status DC Propofol 20 ml @ As Directed STK-MED ONCE IV ; Start 04/11/17 at 07:44; Stop at 07:45; Status DC Lidocaine HCl (Lidocaine Pf 2% Vial) 5 ml STK-MED ONCE .ROUTE ; Start 04/11/17 at 07:44; Stop 04/11/17 at 07:45; Status DC Fentanyl Citrate (Fentanyl 2ml Vial) 100 mcg STK-MED ONCE .ROUTE ; Start at 07:46; Stop 04/11/17 at 07:47; Status DC Midazolam HCl (Versed) 2 mg STK-MED ONCE .ROUTE ; Start 04/11/17 at 07:53; Stop 04/11/17 at 07:54; Status DC Fentanyl Citrate (Fentanyl 2ml Vial) 100 mcg STK-MED ONCE .ROUTE ; Start at 08:34; Stop 04/11/17 at 08:35; Status DC Piperacillin Sod/ Tazobactam Sod 4.5 gm/Sodium Chloride 100 ml @ 200 mls/hr Q6HRS IV Last administered on 04/12/17t 18:44; Start 04/12/17 at 12:00; Stop at 20:51; Status DC Piperacillin Sod/ Tazobactam Sod (Zosyn Per Pharmacy) 1 each PRN DAILY PRN MC SEE COMMENTS; Start 04/12/17 at 11:45; Stop 04/12/17 at 20:52; Status DC Acetaminophen (Tylenol) 650 mg PRN Q6HRS PRN PO FEVER; Start 04/12/17 at 11:45 Ondansetron HCl (Zofran) 4 mg PRN Q6HRS PRN IV NAUSEA/VOMITING; Start 04/12/17 at 11:45 Morphine Sulfate 2 mg PRN Q2HR PRN IV PAIN; Start 04/12/17 at 11:45 Tramadol HCl (Ultram) 50 mg PRN Q6HRS PRN PO PAIN Last administered on t 04:06; Start 04/12/17 at 11:45 Hydralazine HCl (Apresoline) 10 mg PRN Q4HRS PRN IVP ELEVATED BP, SEE COMMENTS ; Start 04/12/17 at 11:45 Docusate Sodium (Colace) 100 mg PRN DAILY PRN PO CONSTIPATION; Start 04/12/17 at 11:45 Sennosides (Senna) 17.2 mg PRN BID PRN PO CONSTIPATION; Start 04/12/17 at 11:45 Metronidazole (Flagyl) 500 mg Q8HRS PO Last administered on 04/13/17 06:05; Start 04/12/17 at 22:00 Amoxicillin/ Clavulanate Potassium (Augmentin 875/ 125mg) 1 tab BID PO Last administered on 04/13/17 09:00; Start 04/12/17 at 21:00 Ondansetron HCl (Zofran Odt) 4 mg PRN Q6HRS PRN PO NAUSEA/VOMITING Last administered on 04/13/17 09:07; Start 04/13/17 at 02:30 Vitals/I & O Vital Sign - Last 24 Hours 04/12/17 04/12/17 04/12/17 04/12/17 15:00 19:00 20:00 20:05 Temp 97.7 98.2 97.7 98.2 Pulse 65 65 Resp 18 18 B/P (MAP) 152/104 (120) 150/99 (116) Pulse Ox 100 100 O2 Delivery Room Air Room Air Room Air Room Air 04/12/17 04/12/17 04/13/17 04/13/17 21:58 22:32 02:49 04:06 Temp 97.5 98.1 97.5 98.1 Pulse 62 65 74 Resp 18 16 B/P (MAP) 145/94 (111) 148/91 (110) 131/86 (101) Pulse Ox 100 97 O2 Delivery Room Air Room Air Room Air 04/13/17 04/13/17 04/13/17 04/13/17 05:06 07:00 08:00 09:07 Temp 98.4 98.4 Pulse 73 Resp 20 18 B/P (MAP) 140/86 (104) Pulse Ox 100 O2 Delivery Room Air Room Air Room Air Room Air 04/13/17 04/13/17 10:07 11:00 Temp 98.0 98.0 Pulse 68 Resp 16 22 B/P (MAP) 155/80 (105) Pulse Ox 98 O2 Delivery Room Air Intake and Output 04/12/17 04/12/17 04/13/17 15:00 23:00 07:00 Intake Total 300 ml 1180 ml 1200 ml Output Total 200 ml Balance 300 ml 1180 ml 1000 ml KIN COFFMAN III DO Apr 13, 2017 11:57
[2017-04-13] MEDS ORDERED: AMOX1TAB61 PO (13:29)
[2017-04-13] MEDS ORDERED: METR500T PO (13:29)
== END 2017-04-13 14:00 | disposition home or self-care (01) | DRG 854 ==
LOC: ER 00:25 → 5 SOUTH 01:40
PROVIDERS: ADMIT Internal Medicine Hematology & Oncology; ATTEND Internal Medicine Hematology & Oncology
PROC: 06BY0ZC Excision of Hemorrhoidal Plexus, Open Approach (ICD-10-PCS; 2017-04-10)
PROC: 0H9AXZZ Drainage of Inguinal Skin, External Approach (ICD-10-PCS; principal; 2017-04-11 08:00)
DX: A41.9 Sepsis, unspecified organism (principal); L02.01 Cutaneous abscess of face; L02.214 Cutaneous abscess of groin; K61.1 Rectal abscess; F17.210 Nicotine dependence, cigarettes, uncomplicated; K64.5 Perianal venous thrombosis; L73.2 Hidradenitis suppurativa; Z82.49 Family history of ischemic heart disease and other diseases of the circulatory system
CPT/HCPCS: 36415; 74177; 80048; 80202; 80307; 81001; 83605; 84145; 85025; 85610; 85730; 87040; 87071; 87075; 87205; 88304; 96365; A4215; G0480; J0690; J1100; J1885; J2250; J2270; J2405; J2543; J2704; J3010; J3370; J3490; J7030; J7040; J7050; J7120; Q0162; Q9967; S0028; 99285-25; G0479; J2001